=== PATIENT | male | born 1980 | race Caucasian/White ===

== ENCOUNTER 2025-03-11 16:45 | Inpatient (IN) | payer OTHER, SELFPAY ==
[2025-03-11 17:01] VITALS: BP 142/89; PULSE 108; RESP 18; TEMP 36.7; O2SAT 100; BMI 23.5
[2025-03-11 17:14] VITALS: RESP 16
[2025-03-11 17:22] LABS: MANUAL DIFF FLAG NO
[2025-03-11 17:23] LABS: Appearance Urine Clear; Glucose Urine UA >=1000 mg/dL (Negative); Hematocrit 38.4 % (42.0-52.0); Hemoglobin 13.8 g/dl (14.0-18.0); Imm Gran Abs Auto 0.03 X10*3/uL (0.00-0.03); Imm Gran Pct Auto 0.3 % (0.0-0.4); Lymphocytes Absolute Auto 2.6 X10*3/uL (1.2-4.9); Mean Corpuscular HGB Conc 35.9 g/dl (31.0-36.0); Mean Corpuscular Hemoglobin 28.9 pg (27.0-33.0); Mean Corpuscular Volume 80.3 fL (80.0-98.0); NRBC Abs Auto 0.000 X10*3/uL (0.0-0.012); NRBC Pct Auto 0.0 /100WBC (0.0-0.2); PH 5.5 (5.0-9.0); Platelet Count 380 X10*3/uL (160-400); Red Blood Count 4.78 X10*6/uL (4.60-5.80); Specific Gravity - Urine >= 1.030 (1.005-1.025); UMIC TRIGGER UACC YES; White Blood Count 10.1 X10*3/uL (4.8-10.8)
--- NOTE | 2025-03-11 17:29 | PC.NURSE ---
RE: med rec This RN completed pts medications reconciliation by looking at patient's [facility] on phone with listed medications. Pt verbally verified all medications as well
[2025-03-11 17:34] LABS: Cannabinoid Screen Urine Not Detected (Not Detect)
[2025-03-11 17:41] LABS: Alanine Aminotransferase 36 U/L (0-40); Albumin Level 4.7 g/dL (3.5-5.0); Alkaline Phosphatase 58 U/L (39-117); Anion Gap 17 (12-20); Aspartate Amino Transferase 25 U/L (5-37); Blood Urea Nitrogen 15 mg/dL (9-16); Calcium 9.2 mg/dL (8.4-10.2); Carbon Dioxide 22 mmol/L (22-29); Chloride 101 mmol/L (96-108); Creatinine Clr Calc Pharmacy 84.7; Estimated Glomerular Filt Rate > 60; Potassium 4.0 mmol/L (3.3-5.1); Sodium 136 mmol/L (135-145); Total Protein 6.9 g/dL (6.5-8.0)
--- NOTE | 2025-03-11 18:00 | ED.PSYCH ---
HPI - Psych General Chief Complaint: Psychiatric Symptoms Stated Complaint: Depression/SI Time Seen by Provider: 03/11/25 17:58 Source: patient and RN notes reviewed Mode of arrival: ambulatory Limitations: no limitations History of Present Illness ED Provider: Dianne Johnson PA-C HPI Narrative: 44-year-old male with history of depression, presents to the ED today due to increased feelings of depression and suicidal ideation. Patient states he had a job lined up in [place] and was fired on February 28. Since he has been fired from his job he has felt increased life stressors, increased depression and hopelessness. Patient states he feels like he would be better off not here anymore and has suicidal ideation with plan of overdosing on his insulin. Patient states he does not want to do this and these feelings prompted him to seek care in the ED today. Patient states he does have a mild frontal headache and is requesting Tylenol. Patient denies chest pain, shortness of breath, nausea, vomiting, dizziness, lightheadedness, visual changes, visual hallucinations, auditory hallucinations, HI. MD complaint: suicidal ideation Related Data Home Medications ?Medication ?Instructions ?Recorded ?Confirmed albuterol sulfate 90 mcg/actuation 1 puff inhalation Q6H PRN 03/11/25 03/11/25 aerosol inhaler (Ventolin HFA) Shortness Of Breath amlodipine 5 mg tablet 5 mg PO DAILY 03/11/25 03/11/25 atorvastatin 80 mg tablet 80 mg PO DAILY 03/11/25 03/11/25 insulin NPH-regular 70-30 U-100 See Protocol subcut BIDWM 03/11/25 03/11/25 insulin 100 unit/mL subcutaneous pen (Novolin 70-30 FlexPen U-100 Insulin) losartan 100 mg tablet 100 mg PO DAILY 03/11/25 03/11/25 metformin 1,000 mg tablet 1,000 mg PO BIDWMEAL 03/11/25 03/11/25 potassium citrate 10 mEq (1,080 10 meq PO BIDWM 03/11/25 03/11/25 mg) tablet,extended release venlafaxine 75 mg capsule,extended 225 mg PO DAILY 03/11/25 03/11/25 release 24 hr (Effexor XR) Allergies Allergy/AdvReac Type Severity Reaction Status Date / Time Penicillins Allergy Severe Anaphylaxis Verified 03/11/25 17:03 Review of Systems Review of Systems: CONST: Negative for fever, body aches and chills. HENT: Negative for neck pain/stiffness, headache, congestion, sore throat, swelling. POS frontal headache EYES: Negative for discharge/pain or vision changes. RESP: Negative for cough/hemoptysis and shortness of breath. CV: Negative chest pain, difficulty breathing, palpitations. ABD: Negative pain, nausea, vomiting. : Negative increase frequency, dysuria, blood in urine or stool. MUSC: Negative for muscle aches, edema. SKIN: Negative rash, lesions/sores. NEURO: Negative headache, dizziness, weakness. PSYCH: POS increased depression, hopelessness, SI with plan to OD on insulin Yes all other systems are reviewed and are negative PMFSH Past Medical History Attestation statement: The following information was validated with the patient. Source: unable to obtain (Patient from [place] does not have any medical records in [place]) Social History Social History Smoked in Last 30 Days: No Use of substances other than those prescribed or required for medical reasons: No Advance Directives: No Advance Directives Information Provided: Yes Physical Exam Vital Signs: Vital Signs: Last Vital Signs Temp 97.9 F 03/13/25 08:05 Pulse 96 03/13/25 08:05 Resp 17 03/13/25 06:35 BP 146/91 H 03/13/25 09:41 Pulse Ox 99 03/13/25 08:05 O2 Del Method Room Air 03/13/25 08:05 BMI result Body Mass Index 23.5 GENERAL APPEARANCE: ?AxOx3, no acute distress. HEENT: ?NC, AT. MMM. EOMI, clear conjunctiva, oropharynx clear. NECK: No stiffness or restricted ROM. HEART: Normal perfusion distally LUNGS:?No increased respiratory effort NEUROLOGICAL: ?Grossly nonfocal. Alert and oriented, moving all 4 extremities. Observed to ambulate with normal gait. SKIN: ?Warm and dry without any rash. PSYCH: Mood is depressed, affect flat, and minimally reactive. Thought process is linear, no hallucinations or delusions noted. Positive suicidal ideation with plan to overdose on insulin. Course Reevaluation(s) Reevaluation #1: Time: 03:11 Date: 03/12/25 Provider: Elizabeth Dean PA-C Patient in physician observation for psychiatric evaluation.? No acute events reported overnight. No current complaints. VS stable.? Patient is in bed search status/pending CARE team evaluation. Will continue to monitor. Time: 03:10 Reevaluation #2: Time: 11:10 Date: 03/13/25 Provider: Briana Rivas DO Patient in physician observation for psychiatric evaluation.? No acute events reported overnight. No current complaints. VS stable.? Patient is in bed search status. Will continue to monitor. Reevaluation #3: Time: 14:30 Date: 03/13/25 Provider: Briana Rivas DO Physician observation ended at 230pm. Patient to be admitted as inpatient to psychiatry. Medications Administered Generic Name Dose Route Start Last Admin Trade Name Freq PRN Reason Stop Dose Admin Amlodipine Besylate 5 mg 03/12/25 09:00 03/13/25 09:41 Amlodipine Besylate 5 Mg Tablet PO 5 mg DAILY MELISSA Administration Protocol Atorvastatin Calcium 80 mg 03/12/25 09:00 03/13/25 09:42 Atorvastatin Calcium 80 Mg Tablet PO 80 mg DAILY MELISSA Administration Insulin Human Lispro 0 unit 03/11/25 21:00 03/13/25 13:33 Insulin Lispro 100 Unit/Ml 3 Ml Vial SUBCUT 6 unit QIDACHS MELISSA Administration Protocol Losartan Potassium 100 mg 03/12/25 09:00 03/13/25 09:41 Losartan Potassium 50 Mg Tablet PO 100 mg DAILY MELISSA Administration Protocol Metformin HCl 1,000 mg 03/11/25 19:45 03/13/25 09:42 Metformin Hcl 1,000 Mg Tablet PO 1,000 mg BIDWM MELISSA Administration Venlafaxine HCl 225 mg 03/12/25 09:00 03/13/25 09:41 Venlafaxine Hcl Er 75 Mg Cap.Er.24h PO 225 mg DAILY MELISSA Administration Discontinued Medications Generic Name Dose Route Start Last Admin Trade Name Freq PRN Reason Stop Dose Admin Acetaminophen 975 mg 03/11/25 19:50 03/11/25 20:19 Acetaminophen 325 Mg Tablet PO 03/11/25 19:51 975 mg ONCE ONE Administration Medical Decision Making Medical Decision Making MDM Narrative: 44-year-old male with history of depression, presents to the ED today due to increased feelings of depression and suicidal ideation. Patient states he had a job lined up in [place] and was fired on February 28. Since he has been fired from his job he has felt increased life stressors, increased depression and hopelessness. Patient states he feels like he would be better off not here anymore and has suicidal ideation with plan of overdosing on his insulin. Patient states he does not want to do this and these feelings prompted him to seek care in the ED today. Patient states he does have a mild frontal headache and is requesting Tylenol. VSS, patient in mild distress due to increased depression, nontoxic appearing. Labs reveal elevated glucose at 3:28 a.m., patient states he did take his insulin this morning. UA without evidence of infection, does show >1000 glucose. Urine tox negative for all substances. We will continue his home meds so he will get insulin while in department. Patient does not have any physical complaints except for mild frontal headache, physical exam benign. Patient is resting quietly, is under physician observation, awaiting bed search for inpatient care for increased depression and SI with plan. Patients headache improved after Tylenol. Differential Diagnosis Differential Diagnoses: The differential diagnosis associated with the presentation includes Depression Anxiety SI with plan Admission/Observation Consideration of admission/observation: Escalation of care including admission/observation considered Consult Healthcare Provider Management of the patient was discussed with: Road Inspector (CARE team consult) Lab Data MDM Lab Attestation statement: I reviewed the patient's lab results. 03/11/25 17:17 03/11/25 17:17 Labs: Lab Results 03/11/25 03/11/25 03/12/25 Range/Units 17:17 20:08 07:14 WBC 10.1 (4.8-10.8) X10*3/uL RBC 4.78 (4.60-5.80) X10*6/uL Hgb 13.8 L (14.0-18.0) g/dl Hct 38.4 L (42.0-52.0) % MCV 80.3 (80.0-98.0) fL MCH 28.9 (27.0-33.0) pg MCHC 35.9 (31.0-36.0) g/dl RDW 12.7 (11.0-16.0) % Plt Count 380 (160-400) X10*3/uL MPV 8.9 L (9.4-12.4) fL Immature Gran % (Auto) 0.3 (0.0-0.4) % Neut % (Auto) 66.8 (45-73) % Lymph % (Auto) 26.1 (20-40) % [place] % (Auto) 4.7 (2-11) % Eos % (Auto) 1.8 (0-4) % Baso % (Auto) 0.3 (0-2) % Lymph # (Auto) 2.6 (1.2-4.9) X10*3/uL [place] # (Auto) 0.5 (0.1-1.2) X10*3/uL Eos # (Auto) 0.2 (0.0-0.4) X10*3/uL Baso # (Auto) 0.0 (0.0-0.2) X10*3/uL Abs Immat Gran (auto) 0.03 (0.00-0.03) X10*3/uL Absolute Neuts (auto) 6.7 (2.0-8.3) x10*3/uL Absolute Nucleated RBC 0.000 (0.0-0.012) X10*3/uL Nucleated RBC % (auto) 0.0 (0.0-0.2) /100WBC Sodium 136 (135-145) mmol/L Potassium 4.0 (3.3-5.1) mmol/L Chloride 101 (96-108) mmol/L Carbon Dioxide 22 (22-29) mmol/L Anion Gap 17 (12-20) BUN 15 (9-16) mg/dL Creatinine 1.04 (0.5-1.4) mg/dL Estim Creat Clear Calc 84.7 Estimated GFR > 60 POC Glucose 328 H 256 H (60-115) mg/dL Random Glucose 268 H (60-115) mg/dL Calcium 9.2 (8.4-10.2) mg/dL Total Bilirubin 1.0 (0.0-1.0) mg/dL AST 25 (5-37) U/L ALT 36 (0-40) U/L Alkaline Phosphatase 58 (39-117) U/L Total Protein 6.9 (6.5-8.0) g/dL Albumin 4.7 (3.5-5.0) g/dL Urine Color Yellow Urine Appearance Clear Urine pH 5.5 (5.0-9.0) Ur Specific [place] >= 1.030 H (1.005-1.025) Urine Protein Trace (Neg-Trace) mg/dL Urine Glucose (UA) >=1000 H (Negative) mg/dL Urine Ketones Trace (Negative) mg/dL Urine Blood Negative (Negative) Urine Nitrite Negative (Negative) Ur Leukocyte Esterase Negative (Negative) Urine RBC 0-2 (0-2) /HPF Urine WBC 0-5 (0-5) /HPF Ur Squamous Epith Cells 0-2 (0-2) /HPF Urine Bacteria None Seen (None Seen) Hyaline Casts 0-2 (0-2) /LPF Urine Opiates Screen Not Detected (Not Detect) Ur Buprenorphine Scrn Not Detected (Not Detect) ng/mL Ur Oxycodone Screen Not Detected (Not Detect) ng/mL Urine Methadone Screen Not Detected (Not Detect) ng/mL Urine Fentanyl Screen Not Detected (Not Detect) Ur Barbiturates Screen Not Detected (Not Detect) Ur Phencyclidine Scrn Not Detected (Not Detect) Ur Amphetamines Screen Not Detected (Not Detect) U Benzodiazepines Scrn Not Detected (Not Detect) Urine Cocaine Screen Not Detected (Not Detect) U Marijuana (THC) Screen Not Detected (Not Detect) Ethyl Alcohol < 10 mg/dL 03/12/25 03/12/25 03/12/25 Range/Units 12:45 18:01 21:03 WBC (4.8-10.8) X10*3/uL RBC (4.60-5.80) X10*6/uL Hgb (14.0-18.0) g/dl Hct (42.0-52.0) % MCV (80.0-98.0) fL MCH (27.0-33.0) pg MCHC (31.0-36.0) g/dl RDW (11.0-16.0) % Plt Count (160-400) X10*3/uL MPV (9.4-12.4) fL Immature Gran % (Auto) (0.0-0.4) % Neut % (Auto) (45-73) % Lymph % (Auto) (20-40) % [place] % (Auto) (2-11) % Eos % (Auto) (0-4) % Baso % (Auto) (0-2) % Lymph # (Auto) (1.2-4.9) X10*3/uL [place] # (Auto) (0.1-1.2) X10*3/uL Eos # (Auto) (0.0-0.4) X10*3/uL Baso # (Auto) (0.0-0.2) X10*3/uL Abs Immat Gran (auto) (0.00-0.03) X10*3/uL Absolute Neuts (auto) (2.0-8.3) x10*3/uL Absolute Nucleated RBC (0.0-0.012) X10*3/uL Nucleated RBC % (auto) (0.0-0.2) /100WBC Sodium (135-145) mmol/L Potassium (3.3-5.1) mmol/L Chloride (96-108) mmol/L Carbon Dioxide (22-29) mmol/L Anion Gap (12-20) BUN (9-16) mg/dL Creatinine (0.5-1.4) mg/dL Estim Creat Clear Calc Estimated GFR POC Glucose 264 H 300 H 287 H (60-115) mg/dL Random Glucose (60-115) mg/dL Calcium (8.4-10.2) mg/dL Total Bilirubin (0.0-1.0) mg/dL AST (5-37) U/L ALT (0-40) U/L Alkaline Phosphatase (39-117) U/L Total Protein (6.5-8.0) g/dL Albumin (3.5-5.0) g/dL Urine Color Urine Appearance Urine pH (5.0-9.0) Ur Specific [place] (1.005-1.025) Urine Protein (Neg-Trace) mg/dL Urine Glucose (UA) (Negative) mg/dL Urine Ketones (Negative) mg/dL Urine Blood (Negative) Urine Nitrite (Negative) Ur Leukocyte Esterase (Negative) Urine RBC (0-2) /HPF Urine WBC (0-5) /HPF Ur Squamous Epith Cells (0-2) /HPF Urine Bacteria (None Seen) Hyaline Casts (0-2) /LPF Urine Opiates Screen (Not Detect) Ur Buprenorphine Scrn (Not Detect) ng/mL Ur Oxycodone Screen (Not Detect) ng/mL Urine Methadone Screen (Not Detect) ng/mL Urine Fentanyl Screen (Not Detect) Ur Barbiturates Screen (Not Detect) Ur Phencyclidine Scrn (Not Detect) Ur Amphetamines Screen (Not Detect) U Benzodiazepines Scrn (Not Detect) Urine Cocaine Screen (Not Detect) U Marijuana (THC) Screen (Not Detect) Ethyl Alcohol mg/dL 03/13/25 03/13/25 Range/Units 07:01 12:58 WBC (4.8-10.8) X10*3/uL RBC (4.60-5.80) X10*6/uL Hgb (14.0-18.0) g/dl Hct (42.0-52.0) % MCV (80.0-98.0) fL MCH (27.0-33.0) pg MCHC (31.0-36.0) g/dl RDW (11.0-16.0) % Plt Count (160-400) X10*3/uL MPV (9.4-12.4) fL Immature Gran % (Auto) (0.0-0.4) % Neut % (Auto) (45-73) % Lymph % (Auto) (20-40) % [place] % (Auto) (2-11) % Eos % (Auto) (0-4) % Baso % (Auto) (0-2) % Lymph # (Auto) (1.2-4.9) X10*3/uL [place] # (Auto) (0.1-1.2) X10*3/uL Eos # (Auto) (0.0-0.4) X10*3/uL Baso # (Auto) (0.0-0.2) X10*3/uL Abs Immat Gran (auto) (0.00-0.03) X10*3/uL Absolute Neuts (auto) (2.0-8.3) x10*3/uL Absolute Nucleated RBC (0.0-0.012) X10*3/uL Nucleated RBC % (auto) (0.0-0.2) /100WBC Sodium (135-145) mmol/L Potassium (3.3-5.1) mmol/L Chloride (96-108) mmol/L Carbon Dioxide (22-29) mmol/L Anion Gap (12-20) BUN (9-16) mg/dL Creatinine (0.5-1.4) mg/dL Estim Creat Clear Calc Estimated GFR POC Glucose 244 H 284 H (60-115) mg/dL Random Glucose (60-115) mg/dL Calcium (8.4-10.2) mg/dL Total Bilirubin (0.0-1.0) mg/dL AST (5-37) U/L ALT (0-40) U/L Alkaline Phosphatase (39-117) U/L Total Protein (6.5-8.0) g/dL Albumin (3.5-5.0) g/dL Urine Color Urine Appearance Urine pH (5.0-9.0) Ur Specific [place] (1.005-1.025) Urine Protein (Neg-Trace) mg/dL Urine Glucose (UA) (Negative) mg/dL Urine Ketones (Negative) mg/dL Urine Blood (Negative) Urine Nitrite (Negative) Ur Leukocyte Esterase (Negative) Urine RBC (0-2) /HPF Urine WBC (0-5) /HPF Ur Squamous Epith Cells (0-2) /HPF Urine Bacteria (None Seen) Hyaline Casts (0-2) /LPF Urine Opiates Screen (Not Detect) Ur Buprenorphine Scrn (Not Detect) ng/mL Ur Oxycodone Screen (Not Detect) ng/mL Urine Methadone Screen (Not Detect) ng/mL Urine Fentanyl Screen (Not Detect) Ur Barbiturates Screen (Not Detect) Ur Phencyclidine Scrn (Not Detect) Ur Amphetamines Screen (Not Detect) U Benzodiazepines Scrn (Not Detect) Urine Cocaine Screen (Not Detect) U Marijuana (THC) Screen (Not Detect) Ethyl Alcohol mg/dL Chronic Conditions Patient?s care impacted by: Diabetes and Other (Depression) Discharge Plan Discharge Clinical Impression: Depression Patient Disposition: Admitted As Inpatient Interventions: [place]-Suicide Risk Severity Scale Last Done: 03/12/25 20:24 Print Language: Uzbek
[2025-03-11 20:15] LABS: Glucose, Whole Blood 328 mg/dL (60-115)
[2025-03-12 06:53] VITALS: BP 127/76; PULSE 98; RESP 17; TEMP 36.7; O2SAT 99
--- NOTE | 2025-03-12 07:08 | PC.NURSE ---
Assumed care of patient at 0645, patient appears to be sleeping at this time, respirations even and unlabored, no apparent distress is noted. Continue plan of care for IPLOC
[2025-03-12 07:17] LABS: Glucose, Whole Blood 256 mg/dL (60-115)
[2025-03-12] MEDS: Venlafaxine HCl ER 75 MG CAP.ER.24H 225 MG PO (07:20)
[2025-03-12 07:21] VITALS: BP 127/76
[2025-03-12 12:49] LABS: Glucose, Whole Blood 264 mg/dL (60-115)
[2025-03-12 18:06] LABS: Glucose, Whole Blood 300 mg/dL (60-115)
[2025-03-12 20:43] VITALS: BP 130/86; PULSE 102; RESP 18; TEMP 36.6; O2SAT 98
--- NOTE | 2025-03-12 21:02 | PC.NURSE ---
late entry patient appears relaxing in rear common ar4ea, smiling pleasant no behavioral problems appears in no distress
[2025-03-12 21:07] LABS: Glucose, Whole Blood 287 mg/dL (60-115)
--- NOTE | 2025-03-13 | ECG_ITS ---
Test Reason : CHECK PROLONGED QT Blood Pressure : */* mmHG Vent. Rate : 125 BPM Atrial Rate : 125 BPM P-R Int : 144 ms QRS Dur : 66 ms QT Int : 306 ms P-R-T Axes : 39 -45 48 degrees QTcB Int : 441 ms Sinus tachycardia Left axis deviation Inferior infarct , age undetermined cannot exclude anterior infarct Abnormal ECG No previous ECGs available Referred By: Bernadette Mejia Electronically Signed By: MAHESH CORADO
[2025-03-13 06:35] VITALS: BP 128/77; PULSE 84; RESP 17; TEMP 36.4; O2SAT 99
[2025-03-13 07:04] LABS: Glucose, Whole Blood 244 mg/dL (60-115)
[2025-03-13 08:05] VITALS: BP 146/91; PULSE 96; TEMP 36.6; O2SAT 99
[2025-03-13 09:41] VITALS: BP 146/91
[2025-03-13] MEDS: Venlafaxine HCl ER 75 MG CAP.ER.24H 225 MG PO (09:41)
[2025-03-13 13:01] LABS: Glucose, Whole Blood 284 mg/dL (60-115)
[2025-03-13 14:49] VITALS: BP 130/77; PULSE 124; RESP 14; TEMP 36.8; O2SAT 98
[2025-03-13 16:04] VITALS: BP 132/78; PULSE 114; RESP 16; TEMP 36.3; O2SAT 99; BMI 25.8
[2025-03-13 17:10] LABS: Glucose, Whole Blood 322 mg/dL (60-115)
--- NOTE | 2025-03-13 18:05 | PC.ADMIT ---
Kenan is a 44yr old male with h/o Depression, Insulin Dependent Diabetes, Asthma & HTN. He?s admitted to [facility] today, on a CV, after self-presenting to the ED with increased feelings of depression & suicidal ideation. Kenan is A&Ox4, calm, appropriate & engaged with good eye contact. He does not have a therapist or psychiatrist. His PCP has been managing his antidepressant (Effexor). Kenan is currently between homes. 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 Kenan was then terminated from his job at the camp, so technically he?s homeless at this time. He endorses trauma from childhood (but didn?t elaborate) as well as a traumatic divorce from his first marriage. He has had one suicide attempt in 2016, by putting a plastic bag over his head. Kenan endorses SI but is able to contract for safety while here. He denies HI/AVH. Skin check is unremarkable with the exception of a few bug bites on his lower legs. Kenan was oriented to the unit & placed on 15min safety checks.
[2025-03-13 19:39] VITALS: BP 113/68; PULSE 105; RESP 17; TEMP 36.6; O2SAT 98
[2025-03-13 21:10] LABS: Glucose, Whole Blood 220 mg/dL (60-115)
[2025-03-14 08:00] VITALS: BP 136/76; PULSE 81; RESP 16; TEMP 36.6; O2SAT 97
[2025-03-14 08:02] LABS: Glucose, Whole Blood 285 mg/dL (60-115)
[2025-03-14 08:11] LABS: Hemoglobin A1C 386.4456 umol/L; Total Hemoglobin (HGBA1C) 3549.0838 umol/L
[2025-03-14 08:17] LABS: Anion Gap 14 (12-20); Blood Urea Nitrogen 22 mg/dL (9-16); Calcium 9.0 mg/dL (8.4-10.2); Carbon Dioxide 25 mmol/L (22-29); Chloride 104 mmol/L (96-108); Cholesterol 143 mg/dL (<200); Creatinine Clr Calc Pharmacy 93.7; Estimated Glomerular Filt Rate > 60; HDL Cholesterol 32 mg/dL (>40); Magnesium 1.8 mg/dL (1.6-2.6); Potassium 4.1 mmol/L (3.3-5.1); Sodium 139 mmol/L (135-145); Triglycerides 458 mg/dL (<150)
[2025-03-14] MEDS: Venlafaxine HCl ER 75 MG CAP.ER.24H 225 MG PO (08:18)
[2025-03-14 08:19] VITALS: BP 136/76
[2025-03-14 08:32] LABS: Free T4 (Free Thyroxine) 0.87 ng/dL (0.71-1.85); Thyroid Stimulating Hormone 1.48 uIU/mL (0.32-4.0)
[2025-03-14 08:48] LABS: Vitamin B12 634 pg/mL (200-900)
[2025-03-14 08:53] LABS: Folate 10.9 ng/mL (> or = 4.0)
--- NOTE | 2025-03-14 09:39 | P.HPPS_ITS ---
HPI Date of Service: 03/14/25 Chief Complaint: Depression Sources of Information: patient interviewed, chart reviewed and crisis/core team assessment reviewed HPI Subjective Notes: Ruffin Warning, Conditional Voluntary and 3 Day Narrative: Pt seen on 03/14/25 at 11:00am 44 yo male with hx of depression, severe social anxiety, PTSD ADHD, asthma, diabetes, HLD, who presents for worsening depression following being fired from job. Pt reports long hx of depressive episode, mostly triggered by anxiety provoking experience, followed by negative self talk. Pt was recently fired, unexpectedly from job after 1 week, no explanation leaving him homeless, which triggered spiraling emotions, feelings of being worthless and then that he'd be better off ; pt driving around [place], avoiding talking about his family, eventually called crisis. -no drug/alcohol abuse; no hx of manic episodes; no AVH Past Psychiatric History: one psych admission 2015 one time SA in 2016 therapy over time which has helped Effexor increased a few months ago Medication trials: Effexor XL 150mg for several years Wellbutrin helpful but maybe ceased being so; took 15 years ago Zoloft in HS Medical Evaluation Reviewed: Yes [facility] Medical History (Updated 03/15/25 @ 14:13 by Genet Engel DNP) PTSD (post-traumatic stress disorder) Social anxiety disorder MDD (major depressive disorder), recurrent severe, without psychosis Family History: mom has depression Social History: ; one son (step son?) works as center director lead teacher in private schools; numerous jobs since anxiety overwhelms him and he loses job after about a year and son in another state, waiting for pt Substance History: none Trauma History: childhood trauma; did not discuss Diagnostics Vital Signs (24Hr): Vital Signs - 24 hr 03/13/25 09:41 03/13/25 09:41 03/13/25 14:49 Temperature 98.2 F Pulse Rate 124 H Respiratory Rate 14 Blood Pressure 146/91 H 146/91 H 130/77 Pulse Oximetry 98 Oxygen Delivery Method Room Air 03/13/25 16:04 03/13/25 19:39 03/14/25 08:19 Temperature 97.3 F 97.8 F Pulse Rate 114 H 105 H Respiratory Rate 16 17 Blood Pressure 132/78 113/68 136/76 Pulse Oximetry 99 98 Oxygen Delivery Method Room Air Room Air BMI result Body Mass Index 25.8 Labs 03/11/25 17:17 03/18/25 07:51 Labs: Laboratory Results - last 48 hr 03/12/25 03/12/25 03/12/25 12:45 18:01 21:03 Sodium Potassium Chloride Carbon Dioxide Anion Gap BUN Creatinine Estim Creat Clear Calc Estimated GFR POC Glucose 264 H 300 H 287 H Random Glucose Estimat Average Glucose Hemoglobin A1c % Calcium Magnesium Triglycerides Cholesterol LDL Cholesterol, Calc HDL Cholesterol Vitamin B12 Folate TSH Free T4 03/13/25 03/13/25 03/13/25 07:01 12:58 17:06 Sodium Potassium Chloride Carbon Dioxide Anion Gap BUN Creatinine Estim Creat Clear Calc Estimated GFR POC Glucose 244 H 284 H 322 H Random Glucose Estimat Average Glucose Hemoglobin A1c % Calcium Magnesium Triglycerides Cholesterol LDL Cholesterol, Calc HDL Cholesterol Vitamin B12 Folate TSH Free T4 03/13/25 03/14/25 03/14/25 21:00 07:47 07:59 Sodium 139 Potassium 4.1 Chloride 104 Carbon Dioxide 25 Anion Gap 14 BUN 22 H Creatinine 0.94 Estim Creat Clear Calc 93.7 Estimated GFR > 60 POC Glucose 220 H 285 H Random Glucose 271 H Estimat Average Glucose 301 Hemoglobin A1c % 12.1 H Calcium 9.0 Magnesium 1.8 Triglycerides 458 H Cholesterol 143 LDL Cholesterol, Calc TNP HDL Cholesterol 32 L Vitamin B12 634 Folate 10.9 TSH 1.48 Free T4 0.87 Meds/Allergies Meds Home Medications ?Medication ?Instructions ?Recorded ?Confirmed ?Type albuterol sulfate 90 mcg/actuation 1 puff inhalation Q 6H PRN 03/11/25 03/11/25 History aerosol inhaler (Ventolin HFA) Shortness Of Breath amlodipine 5 mg tablet 5 mg PO DAILY 03/11/2503/11 History atorvastatin 80 mg tablet 80 mg PO DAILY 03/11/2502/28 History insulin NPH-regular 70-30 U-100 See Protocol subcut BI DWM 03/11/25 03/11/25 History insulin 100 unit/mL subcutaneous pen (Novolin 70-30 FlexPen U-100 Insulin) losartan 100 mg tablet 100 mg PO DAILY 03/11/2508/24 History metformin 1,000 mg tablet 1,000 mg PO BIDWMEAL 5 03/11/25 History potassium citrate 10 mEq (1,080 10 meq PO BIDWM 03/11/25 History mg) tablet,extended release venlafaxine 75 mg capsule,extended 225 mg PO DAILY 08/2403/11/25 History release 24 hr (Effexor XR) Allergies Allergies Allergy/AdvReac Type Severity Reaction Status Date / Time Penicillins Allergy Severe Anaphylaxis Verified 03/11/25 17:03 Mental Status Exam Mental Status Exam Narrative: Pt is alert and oriented; behavior is cooperative, calm; patient is not in distress; dressed in hospital attire, bearded, glasses, unkempt; mood is described as anxious, depressed and affect congruent; eye contact appropriate; Speech is normal rate, volume and prosody and not pressured; psychomotor retardation present; thought process is organized and goal directed; Thought content is on tx; otherwise pertinent to relevant topics and without any delusional content, paranoid ideations or grandiosity; passive SI; no HI. Denies AVH and there is no evidence of perceptual disturbance. Patients insight and judgment impaired. Assessment & Plan Assessment & Plan (1) MDD (major depressive disorder), recurrent severe, without psychosis: Status: Acute Code(s): F33.2 - Major depressive disorder, recurrent severe without psychotic features (2) Social anxiety disorder: Status: Acute Code(s): F40.10 - Social phobia, unspecified (3) PTSD (post-traumatic stress disorder): Status: Acute Code(s): F43.10 - Post-traumatic stress disorder, unspecified Plan HPI: 44 yo male with hx of depression, severe social anxiety, PTSD ADHD, asthma, diabetes, HLD, who presents for worsening depression following being fired from job. Pt reports long hx of depressive episode, mostly triggered by anxiety provoking experience, followed by negative self talk. Pt was recently fired, unexpectedly from job after 1 week, no explanation leaving him homeless, which triggered spiraling emotions, feelings of being worthless and then that he'd be better off ; pt driving around [place], avoiding talking about his family, eventually called crisis. -no drug/alcohol abuse; no hx of manic episodes; no AVH discussed significant social anxiety: walk into situations already thinking people don't like me...anxious around people of authority; worried about getting in trouble Formulation/clinical reasoning: Depression mostly treated with Venlafaxine (recently increased). However, much of depressive episode triggered by some anxiety provoking event that releases flood of negative self-talk resulting in depressive episode. It seems that this anxiety remains poorly treated by Venlafaxine. -Discussed med options and reviewed risks/side-effects of both Buspar and Trileptal and pt open to both. 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 -Other options include: mirtazapine, low dose anti-psychotic, intuniv..and TMS. Will also try prn Clonidine. -Pt has unaddressed trauma and Ultimately, therapy required for most chance at reducing symptoms PLAN' CV q15 START Trileptal 150mg bid; likely titrate to 300mg TID Continue Venlafaxine xl 225mg STart Clonidine PRN TMS consult placed discussed HbA1C and pt aware Discussed HLD/TAG and pt aware Patient educated on: diagnosis, medication risk/benefits, TMS, therapeutic strategies and medical condition Informed Consent: understands Reason for continued inpatient stay Substantial Risk for: rapid decompensation Statement Statement: I have reviewed the history and physical and performed a pertinent examination on my patient. No changes have occurred unless specified. If the History and Physical was not performed prior to admission, the Hospitalist's service will be consulted for completing the admission physical. Time Spent With Patient Time: Total time managing care of this patient today ____ minutes.
[2025-03-14 12:35] LABS: Glucose, Whole Blood 327 mg/dL (60-115)
[2025-03-14 17:13] LABS: Glucose, Whole Blood 239 mg/dL (60-115)
[2025-03-14 20:00] VITALS: BP 116/55; PULSE 85; RESP 16; O2SAT 95
[2025-03-14 21:48] LABS: Glucose, Whole Blood 333 mg/dL (60-115)
[2025-03-14] MEDS: traZODone HCL 25 MG HALFTAB PO (22:29)
[2025-03-15 07:53] LABS: Glucose, Whole Blood 206 mg/dL (60-115)
[2025-03-15 08:00] VITALS: BP 123/64; PULSE 88; TEMP 36.7; O2SAT 99
[2025-03-15 09:26] VITALS: BP 123/64
[2025-03-15] MEDS: Venlafaxine HCl ER 75 MG CAP.ER.24H 225 MG PO (09:27)
--- NOTE | 2025-03-15 10:43 | HO.PM.IMCN ---
History of Present Illness Data of Consult Service Date: 03/15/25 Primary Care Provider: None Physician HPI Reason for consult: Hyperglycemia 44-year-old male with a history of PTSD, social anxiety, major depressive disorder, depression, hypertension, hyperlipidemia, and insulin-dependent diabetes. Patient is seen for elevated A1c. His A1c was noted to be 12.1. Patient reports that he was previously taking insulin 70/30 twice daily, he was off of his insulin for a period of about 6 months due to not having any insurance. He has been getting insulin sliding scale here, his point of care glucose has been ranging 239-414. He is swinging lispro sliding scale, patient is also taking metformin twice daily. Patient reports that he previously took Ozempic as well in his A1c was in the 8 but he has been off his medications for some time. He denies any shortness with his breath, dizziness, lightheadedness or any other concerning symptoms. Reports that he feels a little tired, he did receive medication this morning to help with his anxiety and he feels like this is attributing to him feeling tired. Review of Systems Review of Systems: Denies any shortness of breath, chest pain, dizziness, lightheadedness, abdominal pain or discomfort, nausea vomiting or diarrhea [facility] Medical History (Updated 03/15/25 @ 14:13 by Genet Engel DNP) PTSD (post-traumatic stress disorder) Social anxiety disorder MDD (major depressive disorder), recurrent severe, without psychosis Social History Household Members: None Household Members Other:: in [facility] between homes & jobs Housing: Homeless Do you presently have visiting nurse or other home services: No Patient Tobacco Use Status: Never used Tobacco Smoked in Last 30 Days: No e-Cigarette/Vaping Use: Never Used Second Hand Smoke Exposure: No Use of substances other than those prescribed or required for medical reasons: No Currently Displaying Signs/Symptoms of Drug Intoxication Withdrawal: No Have you been hit, kicked, punched, or otherwise hurt by someone within the past year? If so, by whom?: No Do you feel safe in your current relationship?: Yes Is there a partner from a previous relationship who is making you feel unsafe now?: No Are you made to feel afraid or neglected: No Spiritual Healthcare Practices: N/A Advance Directives: No Advance Directives Information Provided: Yes Do you have thoughts of harming others: None Do you have a plan to hurt others: No Plan Recently lost weight without trying: No How much weight loss: Not applicable Nutrition Risks: No Nutritional Risk Poor oral hygiene: No service: No Sexual orientation: Straight/Heterosexual Meds Allergies Allergy/AdvReac Type Severity Reaction Status Date / Time Penicillins Allergy Severe Anaphylaxis Verified 03/11/25 17:03 Active Medications: Current Medications Acetaminophen (Acetaminophen 325 Mg Tablet) 650 mg PO Q6H PRN PRN Reason: Headache/Pain, Scale 1-10 Al Hydroxide/Mg Hydroxide (Magnesium Hydrox/Alum Hydrox 30 Ml Oral.Susp) 30 ml PO Q6H PRN PRN Reason: Heartburn/Nausea Albuterol Sulfate (Albuterol Sulfate 90 Mcg 8 Gm Inhaler) 1 puff INHALE Q6H PRN PRN Reason: Shortness of Breath Amlodipine Besylate (Amlodipine Besylate 5 Mg Tablet) 5 mg PO DAILY [facility]; Protocol Last Admin: 03/15/25 09:29 Dose: 5 mg Atorvastatin Calcium (Atorvastatin Calcium 80 Mg Tablet) 80 mg PO DAILY [facility] Last Admin: 03/15/25 09:28 Dose: 80 mg Clonidine HCl (Clonidine Hcl 0.1 Mg Tablet) 0.1 mg PO Q4H PRN; Protocol PRN Reason: moderate anxiety Hydroxyzine HCl (Hydroxyzine Hcl 25 Mg Tablet) 25 mg PO Q6H PRN PRN Reason: mild anxiety Last Admin: 03/13/25 22:27 Dose: 25 mg Insulin Human Lispro (Insulin Lispro 100 Unit/Ml 3 Ml Vial) 0 unit SUBCUT QIDACHS [facility]; Protocol Last Admin: 03/15/25 09:42 Dose: Not Given Losartan Potassium (Losartan Potassium 50 Mg Tablet) 100 mg PO DAILY [facility]; Protocol Last Admin: 03/15/25 09:26 Dose: 100 mg Magnesium Hydroxide (Milk Of Magnesia 30 Ml Oral.Susp) 30 ml PO DAILY PRN PRN Reason: Constipation Metformin HCl (Metformin Hcl 1,000 Mg Tablet) 1,000 mg PO BIDWM [facility] Last Admin: 03/15/25 09:27 Dose: 1,000 mg Nicotine Polacrilex (Nicotine Polacrilex 2 Mg Gum) 4 mg BUCCAL Q2H PRN PRN Reason: Nicotine Cravings Oxcarbazepine (Oxcarbazepine 150 Mg Tablet) 150 mg PO BID [facility] Last Admin: 03/15/25 09:29 Dose: 150 mg Trazodone HCl (Trazodone Hcl 25 Mg Halftab) 25 mg PO BEDTIME MRX1 PRN PRN Reason: Insomnia Last Admin: 03/14/25 22:29 Dose: 25 mg Venlafaxine HCl (Venlafaxine Hcl Er 75 Mg Cap.Er.24h) 225 mg PO DAILY [facility] Last Admin: 03/15/25 09:27 Dose: 225 mg Home Medications ?Medication ?Instructions ?Recorded ?Confirmed ?Last Taken ?Type albuterol sulfate 90 mcg/actuation 1 puff inhalation Q6H PRN 03/11/25 03/11/25 03/11/25 History aerosol inhaler (Ventolin HFA) Shortness Of Breath amlodipine 5 mg tablet 5 mg PO DAILY 03/11/25 03/11/25 03/11/25 History atorvastatin 80 mg tablet 80 mg PO DAILY 03/11/25 03/11/25 03/11/25 History insulin NPH-regular 70-30 U-100 See Protocol subcut BIDWM 03/11/25 03/11/25 03/11/25 History insulin 100 unit/mL subcutaneous pen (Novolin 70-30 FlexPen U-100 Insulin) losartan 100 mg tablet 100 mg PO DAILY 03/11/25 03/11/25 03/11/25 History metformin 1,000 mg tablet 1,000 mg PO BIDWMEAL 03/11/25 03/11/25 03/11/25 History potassium citrate 10 mEq (1,080 10 meq PO BIDWM 03/11/25 03/11/25 03/11/25 History mg) tablet,extended release venlafaxine 75 mg capsule,extended 225 mg PO DAILY 03/11/25 03/11/25 Unknown History release 24 hr (Effexor XR) Physical Exam Vital Signs and Narrative: Vital Signs: Last Vital Signs Temp 97.8 F 03/14/25 08:00 Pulse 85 03/14/25 20:00 Resp 16 03/14/25 20:00 BP 123/64 03/15/25 09:26 Pulse Ox 95 03/14/25 20:00 O2 Del Method Room Air 03/14/25 20:00 BMI result Body Mass Index 25.8 CONST: Alert and oriented, in NAD. Well nourished HEENT: Normocephalic, atraumatic, MMM RESP: Lungs clear, RRR even and regular HEART:,RRR, S1, S2. No murmur, no edema GI:Abdomen Soft NT, ND. + BS times four :Deferred SKIN: Warm dry and intact, no visible lesions or rashes NEURO:CN II-XII Intact bilaterally, Sensation intact. Speech clear PSYCH: Normal affect Results Labs 03/11/25 17:17 03/14/25 07:47 Labs: Laboratory Results - last 24 hr 03/14/25 03/14/25 03/14/25 12:31 17:09 21:41 POC Glucose 327 H 239 H 333 H 03/15/25 07:44 POC Glucose 206 H Assessment and Plan (1) Uncontrolled type 2 diabetes mellitus with hyperglycemia, with long-term current use of insulin: Status: Acute Plan 44-year-old male with a history of MDD, PTSD, social anxiety disorder, insulin-dependent diabetes, hypertension, asthma, and hyperlipidemia. He presented to the ED with increased depression and suicidal ideation, he is admitted to for further care and treatment. MDD/PTSD/Social Anxiety/SI Treatment per psychiatric team Type 2 insulin-dependent diabetes Patient reports that he has been off of his insulin as well as his Ozempic for several months due to insurance issues Has been getting lispro sliding scale. Blood sugars have been ranging to 206-414 Patient was previously taking 70/ 30 insulin twice daily- not receiving here A1c noted to be 12.1 on 03/14/2025 We will start Lantus 10 units at hs- titrate up based on response Hypertension/hyperlipidemia Continue atorvastatin 80 mg daily Patient has been off of his medications, his triglycerides are elevated. Recommend repeat in 2 weeks and follow up with PCP. Continue amlodipine and losartan. Blood pressure stable Low-fat diet, encourage exercise. LFTs within normal limits Thank you for allowing me to participate in the care of this patient. We will continue to follow as needed. Please reconsult of any acute concerns or issues arise
[2025-03-15 12:17] LABS: Glucose, Whole Blood 414 mg/dL (60-115)
--- NOTE | 2025-03-15 14:43 | P.PNPSI_ITS ---
Subjective Subjective Date of Service: 03/15/25 Reason For Visit: Depression Subjective Notes: Conditional Voluntary Healthcare Proxy: No Guardianship: No Medical Problems Affecting Mental Status: No Interim History: Medical record and nursing notes reviewed; case discussed during rounds with team/nursing staff, and met with patient for supportive therapy/psychoeducation, as well as medication management. Patient slept for 7 hours last, was medication compliant, denies side effects. Reported that after taking the Trileptal he feels his anxiety like distance even though it is still there. Mood is spacey . He reports having trouble falling asleep last night but appetite was good. Anxiety and depression 5/10. Denies voices, paranoid thoughts, and denies other safety concerns. He met with hospitalist today this morning. We will start Glargine 10 units today. Some elevated blood work on lipid and A1c. Point of care is elevated at lunchtime. Given 12 units Lispro with meal. Nursing to retract 1-2 hours after given. Medication Compliance: Yes Side effects from medications: No Attending Groups: Yes Review of Systems Acute medical concerns: No Medical Review of Systems: unchanged Review of Systems Review of Systems Denies any shortness of breath, chest pain, dizziness, lightheadedness, abdominal pain or discomfort, nausea vomiting or diarrhea Yes all other systems are reviewed and are negative Mental Status Exam Mental Status Exam Narrative: Patient is alert and oriented x3; behavior is cooperative, friendly with mild to moderate anxiety and depression; patient is not in distress; dressed in hospital attire with adequate hygiene; mood is described as spacey, depressed and anxiety and affect congruent; eye contact appropriate; Speech is normal rate, volume and prosody and not pressured; no psychomotor agitation/retardation present; thought process is organized and goal directed; Thought content is WNL, pertinent to relevant topics and without any delusional content, paranoid ideation or grandiosity; denies any SI/SIB/HI. Denies AH and there is no evidence of perceptual disturbance. Patient's insight and judgment fair. Diagnostics Vital Signs (24Hr): Vital Signs - 24 hr 03/14/25 20:00 03/15/25 09:26 Pulse Rate 85 Respiratory Rate 16 Blood Pressure 116/55 L 123/64 Pulse Oximetry 95 Oxygen Delivery Method Room Air BMI result Body Mass Index 25.8 Labs 03/11/25 17:17 03/14/25 07:47 Labs: Laboratory Results - last 48 hr 03/13/25 03/13/25 03/14/25 17:06 21:00 07:47 Sodium 139 Potassium 4.1 Chloride 104 Carbon Dioxide 25 Anion Gap 14 BUN 22 H Creatinine 0.94 Estim Creat Clear Calc 93.7 Estimated GFR > 60 POC Glucose 322 H 220 H Random Glucose 271 H Estimat Average Glucose 301 Hemoglobin A1c % 12.1 H Calcium 9.0 Magnesium 1.8 Triglycerides 458 H Cholesterol 143 LDL Cholesterol, Calc TNP HDL Cholesterol 32 L Vitamin B12 634 Folate 10.9 TSH 1.48 Free T4 0.87 03/14/25 03/14/25 03/14/25 07:59 12:31 17:09 Sodium Potassium Chloride Carbon Dioxide Anion Gap BUN Creatinine Estim Creat Clear Calc Estimated GFR POC Glucose 285 H 327 H 239 H Random Glucose Estimat Average Glucose Hemoglobin A1c % Calcium Magnesium Triglycerides Cholesterol LDL Cholesterol, Calc HDL Cholesterol Vitamin B12 Folate TSH Free T4 03/14/25 03/15/25 03/15/25 21:41 07:44 12:13 Sodium Potassium Chloride Carbon Dioxide Anion Gap BUN Creatinine Estim Creat Clear Calc Estimated GFR POC Glucose 333 H 206 H 414 H* Random Glucose Estimat Average Glucose Hemoglobin A1c % Calcium Magnesium Triglycerides Cholesterol LDL Cholesterol, Calc HDL Cholesterol Vitamin B12 Folate TSH Free T4 Medications Medications Current Medications Acetaminophen (Acetaminophen 325 Mg Tablet) 650 mg PO Q6H PRN PRN Reason: Headache/Pain, Scale 1-10 Al Hydroxide/Mg Hydroxide (Magnesium Hydrox/Alum Hydrox 30 Ml Oral.Susp) 30 ml PO Q6H PRN PRN Reason: Heartburn/Nausea Albuterol Sulfate (Albuterol Sulfate 90 Mcg 8 Gm Inhaler) 1 puff INHALE Q6H PRN PRN Reason: Shortness of Breath Amlodipine Besylate (Amlodipine Besylate 5 Mg Tablet) 5 mg PO DAILY [facility]; Protocol Last Admin: 03/15/25 09:29 Dose: 5 mg Atorvastatin Calcium (Atorvastatin Calcium 80 Mg Tablet) 80 mg PO DAILY [facility] Last Admin: 03/15/25 11:01 Dose: 80 mg Clonidine HCl (Clonidine Hcl 0.1 Mg Tablet) 0.1 mg PO Q4H PRN; Protocol PRN Reason: moderate anxiety Hydroxyzine HCl (Hydroxyzine Hcl 25 Mg Tablet) 25 mg PO Q6H PRN PRN Reason: mild anxiety Last Admin: 03/13/25 22:27 Dose: 25 mg Insulin Glargine (Insulin Glargine,Hum.Rec.Anlog 100 Unit/Ml 10 Ml Vial) 10 unit SUBCUT BEDTIME [facility] Insulin Human Lispro (Insulin Lispro 100 Unit/Ml 3 Ml Vial) 0 unit SUBCUT QIDACHS [facility]; Protocol Last Admin: 03/15/25 12:24 Dose: Not Given Losartan Potassium (Losartan Potassium 50 Mg Tablet) 100 mg PO DAILY [facility]; Protocol Last Admin: 03/15/25 09:26 Dose: 100 mg Magnesium Hydroxide (Milk Of Magnesia 30 Ml Oral.Susp) 30 ml PO DAILY PRN PRN Reason: Constipation Metformin HCl (Metformin Hcl 1,000 Mg Tablet) 1,000 mg PO BIDWM [facility] Last Admin: 03/15/25 09:27 Dose: 1,000 mg Nicotine Polacrilex (Nicotine Polacrilex 2 Mg Gum) 4 mg BUCCAL Q2H PRN PRN Reason: Nicotine Cravings Oxcarbazepine (Oxcarbazepine 150 Mg Tablet) 150 mg PO BID [facility] Last Admin: 03/15/25 09:29 Dose: 150 mg Trazodone HCl (Trazodone Hcl 25 Mg Halftab) 25 mg PO BEDTIME MRX1 PRN PRN Reason: Insomnia Last Admin: 03/14/25 22:29 Dose: 25 mg Venlafaxine HCl (Venlafaxine Hcl Er 75 Mg Cap.Er.24h) 225 mg PO DAILY [facility] Last Admin: 03/15/25 09:27 Dose: 225 mg Allergies Allergies Allergy/AdvReac Type Severity Reaction Status Date / Time Penicillins Allergy Severe Anaphylaxis Verified 03/11/25 17:03 Assessment & Plan Assessment & Plan (1) Uncontrolled type 2 diabetes mellitus with hyperglycemia, with long-term current use of insulin: Status: Acute Code(s): E11.65 - Type 2 diabetes mellitus with hyperglycemia; Z79.4 - alf (current) use of insulin (2) MDD (major depressive disorder), recurrent severe, without psychosis: Status: Acute Code(s): F33.2 - Major depressive disorder, recurrent severe without psychotic features (3) Social anxiety disorder: Status: Acute Code(s): F40.10 - Social phobia, unspecified (4) PTSD (post-traumatic stress disorder): Status: Acute Code(s): F43.10 - Post-traumatic stress disorder, unspecified Plan Formulation/clinical reasoning: Depression mostly treated with Venlafaxine (recently increased). However, much of depressive episode triggered by some anxiety provoking event that releases flood of negative self-talk resulting in depressive episode. It seems that this anxiety remains poorly treated by Venlafaxine. -Discussed med options and reviewed risks/side-effects of both Buspar and Trileptal and pt open to both. 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 -Other options include: mirtazapine, low dose anti-psychotic, intuniv..and TMS. Will also try prn Clonidine. -Pt has unaddressed trauma and Ultimately, therapy required for most chance at reducing symptoms : Inherited patient today, he slept well last night even though having trouble falling asleep, no appetite issues. Medication compliance, no side effects. Trileptal somewhat is helpful with anxiety: Pending effectiveness. Continue to titrate in the future. Could be next day. He tolerates with current dose well. Moderate on depression and anxiety. Point of care elevated, given 12 units of lispro. He also seen by the hospitalist. Abnormal left works on lipid profile. A1c was 12.1. Patient will start Glargine 10 units nightly. No safety concerns. No hallucinations, do not appear to be paranoid or psychotic. Visible and attended groups. PLAN' CV. q15 Contineu with Trileptal 150mg bid; likely titrate to 300mg TID next day on 03/16/25. Continue Venlafaxine xl 225mg STart Clonidine PRN TMS consult placed discussed HbA1C and pt aware Discussed HLD/TAG and pt aware. Seen by the hospitalist on 03/15. Start on Glargine 10 units nightly. Patient educated on: medication risk/benefits and therapeutic strategies Informed Consent: understands Reason for continued inpatient stay Substantial Risk for: med/psych decompensation Time Spent With Patient Time: Total time managing care of this patient today ____ minutes.
[2025-03-15 17:09] LABS: Glucose, Whole Blood 294 mg/dL (60-115)
[2025-03-15 17:23] VITALS: BP 120/72
[2025-03-15 20:00] VITALS: BP 111/60; PULSE 96; RESP 16; TEMP 36.8; O2SAT 99
[2025-03-15 21:07] LABS: Glucose, Whole Blood 249 mg/dL (60-115)
[2025-03-15] MEDS: Insulin Glargine,Hum.rec.anlog 100 UNIT/ML 10 ML VIAL 10 UNIT SUBCUT (21:16)
[2025-03-15] MEDS: traZODone HCL 25 MG HALFTAB PO ×2 (21:24→23:04)
[2025-03-16 00:05] VITALS: BP 139/81
[2025-03-16 08:00] VITALS: BP 122/67; PULSE 84; RESP 16; O2SAT 95
[2025-03-16 08:21] LABS: Glucose, Whole Blood 265 mg/dL (60-115)
[2025-03-16] MEDS: Venlafaxine HCl ER 75 MG CAP.ER.24H 225 MG PO (08:47)
--- NOTE | 2025-03-16 09:39 | HO.PSYCHPN ---
Subjective Subjective Date of Service: 03/16/25 Reason For Visit: Depression Interim History: met with pt; discussed with team doing better, anxiety lower;cloniding helping as PRN; tolerating increased Trileptal. Did DBT exercise which resonated with pt. Talked though chronic negative self talk Mental Status Exam Mental Status Exam Narrative: Patient is alert and oriented x3; behavior is cooperative, friendly; patient is not in distress; dressed in casual attire with adequate hygiene; mood is described as anxiety getting better and affect congruent, brighter, more calm; eye contact appropriate; Speech is normal rate, volume and prosody and not pressured; no psychomotor agitation/retardation present; thought process is organized and goal directed; Thought content is WNL, pertinent to relevant topics and without any delusional content, paranoid ideation or grandiosity; denies any SI/SIB/HI. Denies AH and there is no evidence of perceptual disturbance. Patient's insight and judgment fair. Diagnostics Vital Signs (24Hr): Vital Signs - 24 hr 03/15/25 17:23 03/15/25 20:00 03/16/25 00:05 Temperature 98.2 F Pulse Rate 96 Respiratory Rate 16 Blood Pressure 120/72 111/60 139/81 Pulse Oximetry 99 Oxygen Delivery Method Room Air 03/16/25 08:00 Temperature Pulse Rate 84 Respiratory Rate 16 Blood Pressure 122/67 Pulse Oximetry 95 Oxygen Delivery Method BMI result Body Mass Index 25.8 Labs 03/11/25 17:17 03/18/25 07:51 Labs: Laboratory Results - last 48 hr 03/14/25 03/14/25 03/14/25 12:31 17:09 21:41 POC Glucose 327 H 239 H 333 H 03/15/25 03/15/25 03/15/25 07:44 12:13 17:05 POC Glucose 206 H 414 H* 294 H 03/15/25 03/16/25 21:02 08:17 POC Glucose 249 H 265 H Medications Medications Current Medications Acetaminophen (Acetaminophen 325 Mg Tablet) 650 mg PO Q6H PRN PRN Reason: Headache/Pain, Scale 1-10 Al Hydroxide/Mg Hydroxide (Magnesium Hydrox/Alum Hydrox 30 Ml Oral.Susp) 30 ml PO Q6H PRN PRN Reason: Heartburn/Nausea Albuterol Sulfate (Albuterol Sulfate 90 Mcg 8 Gm Inhaler) 1 puff INHALE Q6H PRN PRN Reason: Shortness of Breath Amlodipine Besylate (Amlodipine Besylate 5 Mg Tablet) 5 mg PO DAILY [facility]; Protocol Last Admin: 03/16/25 08:48 Dose: 5 mg Atorvastatin Calcium (Atorvastatin Calcium 80 Mg Tablet) 80 mg PO DAILY [facility] Last Admin: 03/16/25 08:47 Dose: 80 mg Clonidine HCl (Clonidine Hcl 0.1 Mg Tablet) 0.1 mg PO Q4H PRN; Protocol PRN Reason: moderate anxiety Last Admin: 03/16/25 00:05 Dose: 0.1 mg Hydroxyzine HCl (Hydroxyzine Hcl 25 Mg Tablet) 25 mg PO Q6H PRN PRN Reason: mild anxiety Last Admin: 03/13/25 22:27 Dose: 25 mg Insulin Glargine (Insulin Glargine,Hum.Rec.Anlog 100 Unit/Ml 10 Ml Vial) 10 unit SUBCUT BEDTIME [facility] Last Admin: 03/15/25 21:16 Dose: 10 unit Insulin Human Lispro (Insulin Lispro 100 Unit/Ml 3 Ml Vial) 0 unit SUBCUT QIDACHS [facility]; Protocol Last Admin: 03/16/25 08:48 Dose: 6 unit Losartan Potassium (Losartan Potassium 50 Mg Tablet) 100 mg PO DAILY [facility]; Protocol Last Admin: 03/16/25 08:47 Dose: 100 mg Magnesium Hydroxide (Milk Of Magnesia 30 Ml Oral.Susp) 30 ml PO DAILY PRN PRN Reason: Constipation Metformin HCl (Metformin Hcl 1,000 Mg Tablet) 1,000 mg PO BIDWM [facility] Last Admin: 03/16/25 08:47 Dose: 1,000 mg Nicotine Polacrilex (Nicotine Polacrilex 2 Mg Gum) 4 mg BUCCAL Q2H PRN PRN Reason: Nicotine Cravings Oxcarbazepine (Oxcarbazepine 150 Mg Tablet) 150 mg PO BID [facility] Last Admin: 03/16/25 08:45 Dose: 150 mg Trazodone HCl (Trazodone Hcl 25 Mg Halftab) 25 mg PO BEDTIME MRX1 PRN PRN Reason: Insomnia Last Admin: 03/15/25 23:04 Dose: 25 mg Venlafaxine HCl (Venlafaxine Hcl Er 75 Mg Cap.Er.24h) 225 mg PO DAILY [facility] Last Admin: 03/16/25 08:47 Dose: 225 mg Allergies Allergies Allergy/AdvReac Type Severity Reaction Status Date / Time Penicillins Allergy Severe Anaphylaxis Verified 03/11/25 17:03 Assessment & Plan Assessment & Plan (1) MDD (major depressive disorder), recurrent severe, without psychosis: Status: Acute Code(s): F33.2 - Major depressive disorder, recurrent severe without psychotic features (2) Social anxiety disorder: Status: Acute Code(s): F40.10 - Social phobia, unspecified (3) Uncontrolled type 2 diabetes mellitus with hyperglycemia, with long-term current use of insulin: Status: Acute Code(s): E11.65 - Type 2 diabetes mellitus with hyperglycemia; 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 However, much of depressive episode triggered by some anxiety provoking event that releases flood of negative self-talk resulting in depressive episode. It seems that this anxiety remains poorly treated by Venlafaxine. -Discussed med options and reviewed risks/side-effects of both Buspar and Trileptal and pt open to both. 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 -Other options include: mirtazapine, low dose anti-psychotic, intuniv..and TMS. Will also try prn Clonidine. -Pt has unaddressed trauma and Ultimately, therapy required for most chance at reducing symptoms : Inherited patient today, he slept well last night even though having trouble falling asleep, no appetite issues. Medication compliance, no side effects. Trileptal somewhat is helpful with anxiety: Pending effectiveness. Continue to titrate in the future. Could be next day. He tolerates with current dose well. Moderate on depression and anxiety. Point of care elevated, given 12 units of lispro. He also seen by the hospitalist. Abnormal left works on lipid profile. A1c was 12.1. Patient will start Glargine 10 units nightly. No safety concerns. No hallucinations, do not appear to be paranoid or psychotic. Visible and attended groups. 03/17 doing better, anxiety lower;cloniding helping as PRN; tolerating increased Trileptal. Did DBT exercise which resonated with pt. Talked though chronic negative self talk PLAN' CV. q15 Increased Trileptal 300mg bid Continue Venlafaxine xl 225mg STart Clonidine PRN TMS consult placed discussed HbA1C and pt aware Discussed HLD/TAG and pt aware. Seen by the hospitalist on 03/15. Start on Glargine 10 units nightly. Type 2 insulin-dependent diabetes Patient reports that he has been off of his insulin as well as his Ozempic for several months due to insurance issues Has been getting lispro sliding scale. Blood sugars have been ranging to [phone] Patient was previously taking 70/ 30 insulin twice daily- not receiving here A1c noted to be 12.1 on 03/14/2025 We will start Lantus 10 units at hs- titrate up based on response Hypertension/hyperlipidemia Continue atorvastatin 80 mg daily Patient has been off of his medications, his triglycerides are elevated. Recommend repeat in 2 weeks and follow up with PCP. Continue amlodipine and losartan. Blood pressure stable Low-fat diet, encourage exercise. LFTs within normal limits Patient educated on: diagnosis, medication risk/benefits, TMS and therapeutic strategies Informed Consent: understands Reason for continued inpatient stay Substantial Risk for: stable for discharge Time Spent With Patient Time: Total time managing care of this patient today ____ minutes.
[2025-03-16 12:01] LABS: Glucose, Whole Blood 492 mg/dL (60-115)
[2025-03-16 16:28] LABS: Glucose, Whole Blood 431 mg/dL (60-115)
[2025-03-16 21:15] LABS: Glucose, Whole Blood 308 mg/dL (60-115)
[2025-03-16] MEDS: Insulin Glargine,Hum.rec.anlog 100 UNIT/ML 10 ML VIAL 10 UNIT SUBCUT (21:51)
[2025-03-16] MEDS: traZODone HCL 25 MG HALFTAB PO (21:53)
[2025-03-17 08:00] VITALS: BP 102/65; PULSE 97; RESP 16; O2SAT 97
[2025-03-17 08:17] LABS: Glucose, Whole Blood 212 mg/dL (60-115)
[2025-03-17 08:34] LABS: Anion Gap 11 (12-20); Carbon Dioxide 28 mmol/L (22-29); Chloride 104 mmol/L (96-108); Potassium 4.4 mmol/L (3.3-5.1); Sodium 139 mmol/L (135-145)
[2025-03-17 08:44] VITALS: BP 102/65
[2025-03-17] MEDS: Venlafaxine HCl ER 75 MG CAP.ER.24H 225 MG PO (08:44)
[2025-03-17 12:26] LABS: Glucose, Whole Blood 344 mg/dL (60-115)
[2025-03-17 12:54] VITALS: BP 122/78
[2025-03-17 17:05] LABS: Glucose, Whole Blood 249 mg/dL (60-115)
[2025-03-17 20:00] VITALS: BP 107/64; PULSE 89; TEMP 36.1; O2SAT 100
[2025-03-17 20:18] LABS: Glucose, Whole Blood 286 mg/dL (60-115)
[2025-03-17] MEDS: traZODone HCL 25 MG HALFTAB PO (21:54)
[2025-03-17] MEDS: Insulin Glargine,Hum.rec.anlog 100 UNIT/ML 10 ML VIAL 10 UNIT SUBCUT (22:00)
[2025-03-18 08:15] LABS: Glucose, Whole Blood 231 mg/dL (60-115)
[2025-03-18] MEDS: Venlafaxine HCl ER 75 MG CAP.ER.24H 225 MG PO (08:27)
[2025-03-18 08:30] VITALS: BP 102/62; PULSE 74; RESP 16; TEMP 36.4; O2SAT 99
[2025-03-18 08:43] LABS: Creatinine Clr Calc Pharmacy 92.7; Estimated Glomerular Filt Rate > 60
--- NOTE | 2025-03-18 09:43 | P.PNPSI_ITS ---
Documented by User: Bernadette Mejia, ADITI 03/19/25 13:08 Subjective Subjective Date of Service: 03/18/25 Reason For Visit: Depression Interim History: Pt seen and discussed with the team. Pt reports no issues of concern, no current questions. Denies increase in depressive sx. Denies physical issues. POC monitoring continues as blood sugars are high. Team reports poor dietary compliance Medication Compliance: Yes Side effects from medications: No Attending Groups: Intermittent Review of Systems Acute medical concerns: No Review of Systems Review of Systems Denies Mental Status Exam Mental Status Exam Patient Appearance: Appropriate Patient Orientation: Person, Place, Time and Situation Level of Consciousness: Alert Patient Behavior: Talkative Mood Description: Constricted Affect Description: Constricted Patient Cognition Impaired: No Ability to Follow Directions: Good Speech Pattern: Spontaneous Speech Memory Description: Intact Thought Process: Intact Thought Content: positive for Intact Judgement: Fair Diagnostics Vital Signs (24Hr): Vital Signs - 24 hr 03/17/25 12:54 03/17/25 20:00 03/18/25 08:30 Temperature 97.0 F 97.6 F Pulse Rate 89 74 Respiratory Rate 16 Blood Pressure 122/78 107/64 102/62 Pulse Oximetry 100 99 Oxygen Delivery Method Room Air Room Air BMI result Body Mass Index 25.8 Labs 03/19/25 13:41 03/19/25 13:41 Labs: Laboratory Results - last 48 hr 03/16/25 03/16/25 03/16/25 11:53 16:25 21:09 Sodium Potassium Chloride Carbon Dioxide Anion Gap Creatinine Estim Creat Clear Calc Estimated GFR POC Glucose 492 H* 431 H* 308 H 03/17/25 03/17/25 03/17/25 08:01 08:12 12:23 Sodium 139 Potassium 4.4 Chloride 104 Carbon Dioxide 28 Anion Gap 11 L Creatinine Estim Creat Clear Calc Estimated GFR POC Glucose 212 H 344 H 03/17/25 03/17/25 03/18/25 17:02 19:56 07:51 Sodium Potassium Chloride Carbon Dioxide Anion Gap Creatinine 0.95 Estim Creat Clear Calc 92.7 Estimated GFR > 60 POC Glucose 249 H 286 H 03/18/25 08:03 Sodium Potassium Chloride Carbon Dioxide Anion Gap Creatinine Estim Creat Clear Calc Estimated GFR POC Glucose 231 H Medications Medications Current Medications Acetaminophen (Acetaminophen 325 Mg Tablet) 650 mg PO Q6H PRN PRN Reason: Headache/Pain, Scale 1-10 Al Hydroxide/Mg Hydroxide (Magnesium Hydrox/Alum Hydrox 30 Ml Oral.Susp) 30 ml PO Q6H PRN PRN Reason: Heartburn/Nausea Albuterol Sulfate (Albuterol Sulfate 90 Mcg 8 Gm Inhaler) 1 puff INHALE Q6H PRN PRN Reason: Shortness of Breath Amlodipine Besylate (Amlodipine Besylate 5 Mg Tablet) 5 mg PO DAILY [facility]; Protocol Last Admin: 03/18/25 08:27 Dose: 5 mg Atorvastatin Calcium (Atorvastatin Calcium 80 Mg Tablet) 80 mg PO DAILY [facility] Last Admin: 03/18/25 08:27 Dose: 80 mg Clonidine HCl (Clonidine Hcl 0.1 Mg Tablet) 0.1 mg PO Q4H PRN; Protocol PRN Reason: moderate anxiety Last Admin: 03/18/25 08:50 Dose: 0.1 mg Hydroxyzine HCl (Hydroxyzine Hcl 25 Mg Tablet) 25 mg PO Q6H PRN PRN Reason: mild anxiety Last Admin: 03/17/25 22:08 Dose: 25 mg Insulin Glargine (Insulin Glargine,Hum.Rec.Anlog 100 Unit/Ml 10 Ml Vial) 10 unit SUBCUT BEDTIME [facility] Last Admin: 03/17/25 22:00 Dose: 10 unit Insulin Human Lispro (Insulin Lispro 100 Unit/Ml 3 Ml Vial) 0 unit SUBCUT QIDACHS [facility]; Protocol Last Admin: 03/18/25 08:29 Dose: 4 unit Losartan Potassium (Losartan Potassium 50 Mg Tablet) 100 mg PO DAILY [facility]; Protocol Last Admin: 03/18/25 08:27 Dose: 100 mg Magnesium Hydroxide (Milk Of Magnesia 30 Ml Oral.Susp) 30 ml PO DAILY PRN PRN Reason: Constipation Metformin HCl (Metformin Hcl 1,000 Mg Tablet) 1,000 mg PO BIDWM [facility] Last Admin: 03/18/25 08:27 Dose: 1,000 mg Nicotine Polacrilex (Nicotine Polacrilex 2 Mg Gum) 4 mg BUCCAL Q2H PRN PRN Reason: Nicotine Cravings Oxcarbazepine (Oxcarbazepine 300 Mg Tablet) 300 mg PO BID [facility] Last Admin: 03/18/25 08:28 Dose: 300 mg Trazodone HCl (Trazodone Hcl 25 Mg Halftab) 25 mg PO BEDTIME MRX1 PRN PRN Reason: Insomnia Last Admin: 03/17/25 21:54 Dose: 25 mg Venlafaxine HCl (Venlafaxine Hcl Er 75 Mg Cap.Er.24h) 225 mg PO DAILY [facility] Last Admin: 03/18/25 08:27 Dose: 225 mg Allergies Allergies Allergy/AdvReac Type Severity Reaction Status Date / Time Penicillins Allergy Severe Anaphylaxis Verified 03/11/25 17:03 Assessment & Plan Assessment & Plan (1) Uncontrolled type 2 diabetes mellitus with hyperglycemia, with long-term current use of insulin: Status: Acute Code(s): E11.65 - Type 2 diabetes mellitus with hyperglycemia; Z79.4 - asbestos remover (current) use of insulin (2) MDD (major depressive disorder), recurrent severe, without psychosis: Status: Acute Code(s): F33.2 - Major depressive disorder, recurrent severe without psychotic features (3) Social anxiety disorder: Status: Acute Code(s): F40.10 - Social phobia, unspecified (4) PTSD (post-traumatic stress disorder): Status: Acute Code(s): F43.10 - Post-traumatic stress disorder, unspecified Plan HPI: 44 yo male with hx of depression, severe social anxiety, PTSD ADHD, asthma, diabetes, HLD, who presents for worsening depression following being fired from job. Pt reports long hx of depressive episode, mostly triggered by anxiety provoking experience, followed by negative self talk. Pt was recently fired, unexpectedly from job after 1 week, no explanation leaving him homeless, which triggered spiraling emotions, feelings of being worthless and then that he'd be better off ; pt driving around [place], avoiding talking about his family, eventually called crisis. -no drug/alcohol abuse; no hx of manic episodes; no AVH discussed significant social anxiety: walk into situations already thinking people don't like me...anxious around people of authority; worried about getting in trouble Formulation/clinical reasoning: Depression mostly treated with Venlafaxine (recently increased). However, much of depressive episode triggered by some anxiety provoking event that releases flood of negative self-talk resulting in depressive episode. It seems that this anxiety remains poorly treated by Venlafaxine. -Discussed med options and reviewed risks/side-effects of both Buspar and Trileptal and pt open to both. 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 -Other options include: mirtazapine, low dose anti-psychotic, intuniv..and TMS. Will also try prn Clonidine. -Pt has unaddressed trauma and Ultimately, therapy required for most chance at reducing symptoms Hospital course: 03/16/25: Inherited patient today, he slept well last night even though having trouble falling asleep, no appetite issues. Medication compliance, no side effects. Trileptal somewhat is helpful with anxiety: Pending effectiveness. Continue to titrate in the future. Could be next day. He tolerates with current dose well. Moderate on depression and anxiety. Point of care elevated, given 12 units of lispro. He also seen by the hospitalist. Abnormal left works on lipid profile. A1c was 12.1. Patient will start Glargine 10 units nightly. No safety concerns. No hallucinations, do not appear to be paranoid or psychotic. Visible and attended groups. 03/17 doing better, anxiety lower;cloniding helping as PRN; tolerating increased Trileptal. Did DBT exercise which resonated with pt. Talked though chronic negative self talk 03/18: continue tx. PLAN' CV. q15 Trileptal 300mg bid; likely titrate to 300mg TID Continue Venlafaxine xl 225mg Clonidine PRN TMS consult placed discussed HbA1C and pt aware Discussed HLD/TAG and pt aware. Seen by the hospitalist on 03/15. Start on Glargine 10 units nightly. Type 2 insulin-dependent diabetes Patient reports that he has been off of his insulin as well as his Ozempic for several months due to insurance issues Has been getting lispro sliding scale. Blood sugars have been ranging to 206- 414 Patient was previously taking 70/ 30 insulin twice daily- not receiving here A1c noted to be 12.1 on 03/14/2025 We will start Lantus 10 units at hs- titrate up based on response Hypertension/hyperlipidemia Continue atorvastatin 80 mg daily Patient has been off of his medications, his triglycerides are elevated. Recommend repeat in 2 weeks and follow up with PCP. Continue amlodipine and losartan. Blood pressure stable Low-fat diet, encourage exercise. LFTs within normal limits Reason for continued inpatient stay Substantial Risk for: rapid decompensation Time Spent With Patient Time: Total time managing care of this patient today ____ minutes. Documented by User: Viktor Shafer MD 03/21/25 09:38 Subjective Subjective Reason For Visit: Depression Diagnostics Labs 03/19/25 13:41 03/19/25 13:41 Assessment & Plan Assessment & Plan (1) Uncontrolled type 2 diabetes mellitus with hyperglycemia, with long-term current use of insulin: Status: Acute Code(s): E11.65 - Type 2 diabetes mellitus with hyperglycemia; Z79.4 - asbestos remover (current) use of insulin (2) MDD (major depressive disorder), recurrent severe, without psychosis: Status: Acute Code(s): F33.2 - Major depressive disorder, recurrent severe without psychotic features (3) Social anxiety disorder: Status: Acute Code(s): F40.10 - Social phobia, unspecified (4) PTSD (post-traumatic stress disorder): Status: Acute Code(s): F43.10 - Post-traumatic stress disorder, unspecified Plan HPI: 44 yo male with hx of depression, severe social anxiety, PTSD ADHD, asthma, diabetes, HLD, who presents for worsening depression following being fired from job. Pt reports long hx of depressive episode, mostly triggered by anxiety provoking experience, followed by negative self talk. Pt was recently fired, unexpectedly from job after 1 week, no explanation leaving him homeless, which triggered spiraling emotions, feelings of being worthless and then that he'd be better off ; pt driving around [place], avoiding talking about his family, eventually called crisis. -no drug/alcohol abuse; no hx of manic episodes; no AVH discussed significant social anxiety: walk into situations already thinking people don't like me...anxious around people of authority; worried about getting in trouble Formulation/clinical reasoning: Depression mostly treated with Venlafaxine (recently increased). However, much of depressive episode triggered by some anxiety provoking event that releases flood of negative self-talk resulting in depressive episode. It seems that this anxiety remains poorly treated by Venlafaxine. -Discussed med options and reviewed risks/side-effects of both Buspar and Trileptal and pt open to both. 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 -Other options include: mirtazapine, low dose anti-psychotic, intuniv..and TMS. Will also try prn Clonidine. -Pt has unaddressed trauma and Ultimately, therapy required for most chance at reducing symptoms Hospital course: 03/16/25: Inherited patient today, he slept well last night even though having trouble falling asleep, no appetite issues. Medication compliance, no side effects. Trileptal somewhat is helpful with anxiety: Pending effectiveness. Continue to titrate in the future. Could be next day. He tolerates with current dose well. Moderate on depression and anxiety. Point of care elevated, given 12 units of lispro. He also seen by the hospitalist. Abnormal left works on lipid profile. A1c was 12.1. Patient will start Glargine 10 units nightly. No safety concerns. No hallucinations, do not appear to be paranoid or psychotic. Visible and attended groups. 03/17 doing better, anxiety lower;cloniding helping as PRN; tolerating increased Trileptal. Did DBT exercise which resonated with pt. Talked though chronic negative self talk PLAN' CV. q15 Trileptal 300mg bid; likely titrate to 300mg TID Continue Venlafaxine xl 225mg Clonidine PRN TMS consult placed discussed HbA1C and pt aware Discussed HLD/TAG and pt aware. Seen by the hospitalist on 03/15. Start on Glargine 10 units nightly. Type 2 insulin-dependent diabetes Patient reports that he has been off of his insulin as well as his Ozempic for several months due to insurance issues Has been getting lispro sliding scale. Blood sugars have been ranging to 206- 414 Patient was previously taking 70/ 30 insulin twice daily- not receiving here A1c noted to be 12.1 on 03/14/2025 We will start Lantus 10 units at hs- titrate up based on response Hypertension/hyperlipidemia Continue atorvastatin 80 mg daily Patient has been off of his medications, his triglycerides are elevated. Recommend repeat in 2 weeks and follow up with PCP. Continue amlodipine and losartan. Blood pressure stable Low-fat diet, encourage exercise. LFTs within normal limits
[2025-03-18 12:10] LABS: Glucose, Whole Blood 315 mg/dL (60-115)
[2025-03-18 17:05] LABS: Glucose, Whole Blood 410 mg/dL (60-115)
--- NOTE | 2025-03-18 17:47 | PC.NURSE ---
Pt's dinnertime POC was 410. Pt received 10 units admelog per sliding scale protocol. Hospitalist Jina Scott ordered 4 additional units, which pt received.
[2025-03-18 19:13] VITALS: BP 125/56
[2025-03-18 20:00] VITALS: BP 125/56; PULSE 99; TEMP 36.8; O2SAT 97
[2025-03-18] MEDS: traZODone HCL 25 MG HALFTAB PO ×2 (21:31→22:56)
[2025-03-18] MEDS: Insulin Glargine,Hum.rec.anlog 100 UNIT/ML 10 ML VIAL 10 UNIT SUBCUT (21:38)
[2025-03-18 23:42] LABS: Glucose, Whole Blood 390 mg/dL (60-115)
--- NOTE | 2025-03-19 | ECG_ITS ---
Test Reason : high POC's, not feeling well today Blood Pressure : */* mmHG Vent. Rate : 89 BPM Atrial Rate : 89 BPM P-R Int : 166 ms QRS Dur : 74 ms QT Int : 352 ms P-R-T Axes : 53 -2 38 degrees QTcB Int : 428 ms Normal sinus rhythm Normal ECG When compared with ECG of 13-Mar-2025 14:29, QRS axis Shifted right Criteria for Inferior infarct are no longer Present Referred By: Bernadette Mejia Electronically Signed By: Timothy Beltran
[2025-03-19 01:13] LABS: Glucose, Whole Blood 317 mg/dL (60-115)
[2025-03-19 03:16] LABS: Glucose, Whole Blood 292 mg/dL (60-115)
[2025-03-19 07:55] LABS: Glucose, Whole Blood 175 mg/dL (60-115)
[2025-03-19 08:00] VITALS: BP 105/64; PULSE 74; RESP 18; TEMP 36.3; O2SAT 98
[2025-03-19 08:10] LABS: Creatinine Clr Calc Pharmacy 96.8; Estimated Glomerular Filt Rate > 60
[2025-03-19] MEDS: Venlafaxine HCl ER 75 MG CAP.ER.24H 225 MG PO (08:34)
[2025-03-19 11:58] LABS: Glucose, Whole Blood 272 mg/dL (60-115)
--- NOTE | 2025-03-19 12:58 | P.PNPSI_ITS ---
Subjective Subjective Date of Service: 03/19/25 Reason For Visit: Depression Subjective Notes: Conditional Voluntary Interim History: Pt seen in milieu, discussed with team, asleep when attempted to meet with him in his room. POC's are high-390,317,292,175,272. Pt today tells team that he feels numb, confused, in a fog. Trileptal recently increased. Pt used 50 mg trazodone last night vs 25 mg which may be part of current sx. Discussed with dietary drink choices with no sugar to help manage POC- they only have diet jose luis jina-pt looking for juice type drinks. Will order labs/EKG to evaluate for further physical sx. Medication Compliance: Yes Side effects from medications: No Attending Groups: Intermittent Review of Systems as noted in HPI Review of Systems: High POC values Review of Systems Review of Systems as noted in HPI Mental Status Exam Mental Status Exam Patient Appearance: Appropriate Patient Orientation: Person, Place, Time and Situation Level of Consciousness: Alert Patient Behavior: Talkative and Asleep Mood Description: Constricted Affect Description: Constricted Patient Cognition Impaired: No Ability to Follow Directions: Good Speech Pattern: Spontaneous Speech Memory Description: Intact Thought Process: Intact Thought Content: positive for Intact Judgement: Fair Diagnostics Vital Signs (24Hr): Vital Signs - 24 hr 03/18/25 19:13 03/18/25 20:00 03/19/25 08:00 Temperature 98.2 F 97.4 F Pulse Rate 99 74 Respiratory Rate 18 Blood Pressure 125/56 L 125/56 L 105/64 Pulse Oximetry 97 98 Oxygen Delivery Method Room Air Room Air BMI result Body Mass Index 25.8 Labs 03/11/25 17:17 03/19/25 07:42 Labs: Laboratory Results - last 48 hr 03/17/25 03/17/25 03/18/25 17:02 19:56 07:51 Creatinine 0.95 Estim Creat Clear Calc 92.7 Estimated GFR > 60 POC Glucose 249 H 286 H 03/18/25 03/18/25 03/18/25 08:03 12:05 16:53 Creatinine Estim Creat Clear Calc Estimated GFR POC Glucose 231 H 315 H 410 H* 03/18/25 03/19/25 03/19/25 20:13 01:04 03:08 Creatinine Estim Creat Clear Calc Estimated GFR POC Glucose 390 H* 317 H 292 H 03/19/25 03/19/25 03/19/25 07:42 07:46 11:54 Creatinine 0.91 Estim Creat Clear Calc 96.8 Estimated GFR > 60 POC Glucose 175 H 272 H Medications Medications Current Medications Acetaminophen (Acetaminophen 325 Mg Tablet) 650 mg PO Q6H PRN PRN Reason: Headache/Pain, Scale 1-10 Al Hydroxide/Mg Hydroxide (Magnesium Hydrox/Alum Hydrox 30 Ml Oral.Susp) 30 ml PO Q6H PRN PRN Reason: Heartburn/Nausea Albuterol Sulfate (Albuterol Sulfate 90 Mcg 8 Gm Inhaler) 2 puff INHALE Q6H PRN PRN Reason: Shortness of Breath Amlodipine Besylate (Amlodipine Besylate 5 Mg Tablet) 5 mg PO DAILY [facility]; Protocol Last Admin: 03/19/25 08:34 Dose: 5 mg Atorvastatin Calcium (Atorvastatin Calcium 80 Mg Tablet) 80 mg PO DAILY [facility] Last Admin: 03/19/25 08:34 Dose: 80 mg Clonidine HCl (Clonidine Hcl 0.1 Mg Tablet) 0.1 mg PO Q4H PRN; Protocol PRN Reason: moderate anxiety Last Admin: 03/18/25 19:13 Dose: 0.1 mg Hydroxyzine HCl (Hydroxyzine Hcl 25 Mg Tablet) 25 mg PO Q6H PRN PRN Reason: mild anxiety Last Admin: 03/18/25 13:58 Dose: 25 mg Insulin Glargine (Insulin Glargine,Hum.Rec.Anlog 100 Unit/Ml 10 Ml Vial) 10 unit SUBCUT BEDTIME [facility] Last Admin: 03/18/25 21:38 Dose: 10 unit Insulin Human Lispro (Insulin Lispro 100 Unit/Ml 3 Ml Vial) 0 unit SUBCUT QIDACHS [facility]; Protocol Last Admin: 03/19/25 12:06 Dose: 6 unit Losartan Potassium (Losartan Potassium 50 Mg Tablet) 100 mg PO DAILY [facility]; Protocol Last Admin: 03/19/25 08:34 Dose: 100 mg Magnesium Hydroxide (Milk Of Magnesia 30 Ml Oral.Susp) 30 ml PO DAILY PRN PRN Reason: Constipation Metformin HCl (Metformin Hcl 1,000 Mg Tablet) 1,000 mg PO BIDWM [facility] Last Admin: 03/19/25 08:34 Dose: 1,000 mg Nicotine Polacrilex (Nicotine Polacrilex 2 Mg Gum) 4 mg BUCCAL Q2H PRN PRN Reason: Nicotine Cravings Oxcarbazepine (Oxcarbazepine 300 Mg Tablet) 300 mg PO BID [facility] Last Admin: 03/19/25 08:34 Dose: 300 mg Trazodone HCl (Trazodone Hcl 25 Mg Halftab) 25 mg PO BEDTIME MRX1 PRN PRN Reason: Insomnia Last Admin: 03/18/25 22:56 Dose: 25 mg Venlafaxine HCl (Venlafaxine Hcl Er 75 Mg Cap.Er.24h) 225 mg PO DAILY [facility] Last Admin: 03/19/25 08:34 Dose: 225 mg Allergies Allergies Allergy/AdvReac Type Severity Reaction Status Date / Time Penicillins Allergy Severe Anaphylaxis Verified 03/11/25 17:03 Assessment & Plan Assessment & Plan (1) Uncontrolled type 2 diabetes mellitus with hyperglycemia, with long-term current use of insulin: Status: Acute Code(s): E11.65 - Type 2 diabetes mellitus with hyperglycemia; Z79.4 - snf (current) use of insulin (2) MDD (major depressive disorder), recurrent severe, without psychosis: Status: Acute Code(s): F33.2 - Major depressive disorder, recurrent severe without psychotic features (3) Social anxiety disorder: Status: Acute Code(s): F40.10 - Social phobia, unspecified (4) PTSD (post-traumatic stress disorder): Status: Acute Code(s): F43.10 - Post-traumatic stress disorder, unspecified Plan HPI: 44 yo male with hx of depression, severe social anxiety, PTSD ADHD, asthma, diabetes, HLD, who presents for worsening depression following being fired from job. Pt reports long hx of depressive episode, mostly triggered by anxiety provoking experience, followed by negative self talk. Pt was recently fired, unexpectedly from job after 1 week, no explanation leaving him homeless, which triggered spiraling emotions, feelings of being worthless and then that he'd be better off ; pt driving around [place], avoiding talking about his family, eventually called crisis. -no drug/alcohol abuse; no hx of manic episodes; no AVH discussed significant social anxiety: walk into situations already thinking people don't like me...anxious around people of authority; worried about getting in trouble Formulation/clinical reasoning: Depression mostly treated with Venlafaxine (recently increased). However, much of depressive episode triggered by some anxiety provoking event that releases flood of negative self-talk resulting in depressive episode. It seems that this anxiety remains poorly treated by Venlafaxine. -Discussed med options and reviewed risks/side-effects of both Buspar and Trileptal and pt open to both. 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 -Other options include: mirtazapine, low dose anti-psychotic, intuniv..and TMS. Will also try prn Clonidine. -Pt has unaddressed trauma and Ultimately, therapy required for most chance at reducing symptoms Hospital course: 03/16/25: Inherited patient today, he slept well last night even though having trouble falling asleep, no appetite issues. Medication compliance, no side effects. Trileptal somewhat is helpful with anxiety: Pending effectiveness. Continue to titrate in the future. Could be next day. He tolerates with current dose well. Moderate on depression and anxiety. Point of care elevated, given 12 units of lispro. He also seen by the hospitalist. Abnormal left works on lipid profile. A1c was 12.1. Patient will start Glargine 10 units nightly. No safety concerns. No hallucinations, do not appear to be paranoid or psychotic. Visible and attended groups. 03/17 doing better, anxiety lower;cloniding helping as PRN; tolerating increased Trileptal. Did DBT exercise which resonated with pt. Talked though chronic negative self talk 03/19: Trileptal level 03/20 CBC, CMP, A1C, EKG given high POC values Reports feeling numb, confused, in a fog today. PLAN' CV. q15 Trileptal 300mg bid; likely titrate to 300mg TID Continue Venlafaxine xl 225mg Clonidine PRN TMS consult placed discussed HbA1C and pt aware Discussed HLD/TAG and pt aware. Seen by the hospitalist on 03/15. Start on Glargine 10 units nightly. Type 2 insulin-dependent diabetes Patient reports that he has been off of his insulin as well as his Ozempic for several months due to insurance issues Has been getting lispro sliding scale. Blood sugars have been ranging to 206- 414 Patient was previously taking 70/ 30 insulin twice daily- not receiving here A1c noted to be 12.1 on 03/14/2025 We will start Lantus 10 units at hs- titrate up based on response Hypertension/hyperlipidemia Continue atorvastatin 80 mg daily Patient has been off of his medications, his triglycerides are elevated. Recommend repeat in 2 weeks and follow up with PCP. Continue amlodipine and losartan. Blood pressure stable Low-fat diet, encourage exercise. LFTs within normal limits Reason for continued inpatient stay Substantial Risk for: rapid decompensation Time Spent With Patient Time: Total time managing care of this patient today ____ minutes.
[2025-03-19 13:45] LABS: MANUAL DIFF FLAG NO
[2025-03-19 13:46] LABS: Hematocrit 34.5 % (42.0-52.0); Hemoglobin 11.6 g/dl (14.0-18.0); Imm Gran Abs Auto 0.07 X10*3/uL (0.00-0.03); Imm Gran Pct Auto 0.8 % (0.0-0.4); Lymphocytes Absolute Auto 4.3 X10*3/uL (1.2-4.9); Mean Corpuscular HGB Conc 33.6 g/dl (31.0-36.0); Mean Corpuscular Hemoglobin 28.8 pg (27.0-33.0); Mean Corpuscular Volume 85.6 fL (80.0-98.0); NRBC Abs Auto 0.000 X10*3/uL (0.0-0.012); NRBC Pct Auto 0.0 /100WBC (0.0-0.2); Platelet Count 375 X10*3/uL (160-400); Red Blood Count 4.03 X10*6/uL (4.60-5.80); White Blood Count 9.0 X10*3/uL (4.8-10.8)
[2025-03-19 13:53] LABS: Hemoglobin A1C 333.6378 umol/L; Total Hemoglobin (HGBA1C) 3033.6330 umol/L
[2025-03-19 14:00] LABS: Alanine Aminotransferase 36 U/L (0-40); Albumin Level 4.1 g/dL (3.5-5.0); Alkaline Phosphatase 59 U/L (39-117); Anion Gap 12 (12-20); Aspartate Amino Transferase 25 U/L (5-37); Blood Urea Nitrogen 12 mg/dL (9-16); Calcium 8.9 mg/dL (8.4-10.2); Carbon Dioxide 29 mmol/L (22-29); Chloride 103 mmol/L (96-108); Creatinine Clr Calc Pharmacy 85.5; Estimated Glomerular Filt Rate > 60; Potassium 4.6 mmol/L (3.3-5.1); Sodium 139 mmol/L (135-145); Total Protein 6.2 g/dL (6.5-8.0)
[2025-03-19 15:40] LABS: Iron 110 mcg/dL (45-160); Percent Iron Saturation 36 % (15-50); Total Iron Binding Capacity 303 mcg/dL (228-428); Unsaturated Iron Binding 193 ug/dL
[2025-03-19 16:15] LABS: Folate 8.0 ng/mL (> or = 4.0); Vitamin B12 688 pg/mL (200-900)
[2025-03-19 17:11] LABS: Glucose, Whole Blood 281 mg/dL (60-115)
[2025-03-19 20:00] VITALS: BP 123/73; PULSE 89; RESP 16; TEMP 36.4; O2SAT 99
[2025-03-19] MEDS: Insulin Glargine,Hum.rec.anlog 100 UNIT/ML 10 ML VIAL 10 UNIT SUBCUT (22:00)
[2025-03-19] MEDS: traZODone HCL 25 MG HALFTAB PO ×2 (22:01→23:00)
[2025-03-19 23:00] VITALS: BP 131/82
[2025-03-20 01:34] LABS: Glucose, Whole Blood 310 mg/dL (60-115)
[2025-03-20 07:57] LABS: Glucose, Whole Blood 191 mg/dL (60-115)
[2025-03-20 07:58] VITALS: BP 102/58; PULSE 74; RESP 16; TEMP 36.8; O2SAT 97
[2025-03-20] MEDS: Venlafaxine HCl ER 75 MG CAP.ER.24H 225 MG PO (08:36)
[2025-03-20 12:16] LABS: Glucose, Whole Blood 320 mg/dL (60-115)
[2025-03-20 12:54] VITALS: BP 121/76
[2025-03-20 17:18] LABS: Glucose, Whole Blood 269 mg/dL (60-115)
[2025-03-20 17:32] VITALS: BP 108/58
--- NOTE | 2025-03-20 19:39 | HO.PSYCHPN ---
Subjective Subjective Date of Service: 03/20/25 Reason For Visit: Depression Subjective Notes: Conditional Voluntary Healthcare Proxy: No Guardianship: No Medical Problems Affecting Mental Status: No Interim History: Medical record and nursing notes reviewed; case discussed during rounds with team/nursing staff, and met with patient for supportive therapy/psychoeducation, as well as medication management. Patient slept for 7.5 hours, who was medication compliant. Denies side effects. Reports feeling down today as he is not able to contact his for the past couple of days. He does not know why however he was able to contact someone to let her know that he has tried to talk to her. Encourage him to try again intent afternoon as she is working during the day. He is more isolated this morning in bed. He reports Trileptal has been helpful with his mood and anxiety. He requests to get trazodone increased up to 50 mg as since it was down on he is take 2nd dose every night. Denies safety concerns. Medication Compliance: Yes Side effects from medications: No Attending Groups: Intermittent Review of Systems Acute medical concerns: No Medical Review of Systems: unchanged Review of Systems Review of Systems Denies any shortness of breath, chest pain, dizziness, lightheadedness, abdominal pain or discomfort, nausea vomiting or diarrhea Yes all other systems are reviewed and are negative Mental Status Exam Mental Status Exam Narrative: Patient is alert and oriented x3; behavior is cooperative, friendly with mild to moderate anxiety and depression; patient is not in distress; dressed in casual attire with adequate hygiene; mood is described as down and affect congruent; eye contact appropriate; Speech is normal rate, volume and prosody and not pressured; no psychomotor agitation/retardation present; thought process is organized and goal directed; Thought content is WNL, pertinent to relevant topics and without any delusional content, paranoid ideation or grandiosity; denies any SI/SIB/HI. Denies AH and there is no evidence of perceptual disturbance. Patient's insight and judgment fair. Diagnostics Vital Signs (24Hr): Vital Signs - 24 hr 03/19/25 20:00 03/19/25 23:00 03/20/25 07:58 Temperature 97.6 F 98.2 F Pulse Rate 89 74 Respiratory Rate 16 16 Blood Pressure 123/73 131/82 102/58 L Pulse Oximetry 99 97 Oxygen Delivery Method Room Air Room Air 03/20/25 12:54 03/20/25 17:32 Temperature Pulse Rate Respiratory Rate Blood Pressure 121/76 108/58 L Pulse Oximetry Oxygen Delivery Method BMI result Body Mass Index 25.8 Labs 03/19/25 13:41 03/19/25 13:41 Labs: Laboratory Results - last 48 hr 03/18/25 03/19/25 03/19/25 20:13 01:04 03:08 WBC RBC Hgb Hct MCV MCH MCHC RDW Plt Count MPV Immature Gran % (Auto) Neut % (Auto) Lymph % (Auto) [place] % (Auto) Eos % (Auto) Baso % (Auto) Lymph # (Auto) [place] # (Auto) Eos # (Auto) Baso # (Auto) Abs Immat Gran (auto) Absolute Neuts (auto) Absolute Nucleated RBC Nucleated RBC % (auto) Sodium Potassium Chloride Carbon Dioxide Anion Gap BUN Creatinine Estim Creat Clear Calc Estimated GFR POC Glucose 390 H* 317 H 292 H Random Glucose Estimat Average Glucose Hemoglobin A1c % Calcium Iron TIBC % Saturation Unsat Iron Binding Total Bilirubin AST ALT Alkaline Phosphatase Total Protein Albumin Vitamin B12 Folate 03/19/25 03/19/25 03/19/25 07:42 07:46 11:54 WBC RBC Hgb Hct MCV MCH MCHC RDW Plt Count MPV Immature Gran % (Auto) Neut % (Auto) Lymph % (Auto) [place] % (Auto) Eos % (Auto) Baso % (Auto) Lymph # (Auto) [place] # (Auto) Eos # (Auto) Baso # (Auto) Abs Immat Gran (auto) Absolute Neuts (auto) Absolute Nucleated RBC Nucleated RBC % (auto) Sodium Potassium Chloride Carbon Dioxide Anion Gap BUN Creatinine 0.91 Estim Creat Clear Calc 96.8 Estimated GFR > 60 POC Glucose 175 H 272 H Random Glucose Estimat Average Glucose Hemoglobin A1c % Calcium Iron TIBC % Saturation Unsat Iron Binding Total Bilirubin AST ALT Alkaline Phosphatase Total Protein Albumin Vitamin B12 Folate 03/19/25 03/19/25 03/19/25 13:41 15:17 17:07 WBC 9.0 RBC 4.03 L Hgb 11.6 L Hct 34.5 L MCV 85.6 MCH 28.8 MCHC 33.6 RDW 13.2 Plt Count 375 MPV 9.1 L Immature Gran % (Auto) 0.8 H Neut % (Auto) 42.9 L Lymph % (Auto) 48.0 H [place] % (Auto) 4.7 Eos % (Auto) 2.9 Baso % (Auto) 0.7 Lymph # (Auto) 4.3 [place] # (Auto) 0.4 Eos # (Auto) 0.3 Baso # (Auto) 0.1 Abs Immat Gran (auto) 0.07 H Absolute Neuts (auto) 3.9 Absolute Nucleated RBC 0.000 Nucleated RBC % (auto) 0.0 Sodium 139 Potassium 4.6 Chloride 103 Carbon Dioxide 29 Anion Gap 12 BUN 12 Creatinine 1.03 Estim Creat Clear Calc 85.5 Estimated GFR > 60 POC Glucose 281 H Random Glucose 343 H Estimat Average Glucose 303 Hemoglobin A1c % 12.2 H Calcium 8.9 Iron 110 TIBC 303 % Saturation 36 Unsat Iron Binding 193 Total Bilirubin 0.4 AST 25 ALT 36 Alkaline Phosphatase 59 Total Protein 6.2 L Albumin 4.1 Vitamin B12 688 Folate 8.0 03/19/25 03/20/25 03/20/25 21:01 07:48 12:11 WBC RBC Hgb Hct MCV MCH MCHC RDW Plt Count MPV Immature Gran % (Auto) Neut % (Auto) Lymph % (Auto) [place] % (Auto) Eos % (Auto) Baso % (Auto) Lymph # (Auto) [place] # (Auto) Eos # (Auto) Baso # (Auto) Abs Immat Gran (auto) Absolute Neuts (auto) Absolute Nucleated RBC Nucleated RBC % (auto) Sodium Potassium Chloride Carbon Dioxide Anion Gap BUN Creatinine Estim Creat Clear Calc Estimated GFR POC Glucose 310 H 191 H 320 H Random Glucose Estimat Average Glucose Hemoglobin A1c % Calcium Iron TIBC % Saturation Unsat Iron Binding Total Bilirubin AST ALT Alkaline Phosphatase Total Protein Albumin Vitamin B12 Folate 03/20/25 17:05 WBC RBC Hgb Hct MCV MCH MCHC RDW Plt Count MPV Immature Gran % (Auto) Neut % (Auto) Lymph % (Auto) [place] % (Auto) Eos % (Auto) Baso % (Auto) Lymph # (Auto) [place] # (Auto) Eos # (Auto) Baso # (Auto) Abs Immat Gran (auto) Absolute Neuts (auto) Absolute Nucleated RBC Nucleated RBC % (auto) Sodium Potassium Chloride Carbon Dioxide Anion Gap BUN Creatinine Estim Creat Clear Calc Estimated GFR POC Glucose 269 H Random Glucose Estimat Average Glucose Hemoglobin A1c % Calcium Iron TIBC % Saturation Unsat Iron Binding Total Bilirubin AST ALT Alkaline Phosphatase Total Protein Albumin Vitamin B12 Folate Medications Medications Current Medications Acetaminophen (Acetaminophen 325 Mg Tablet) 650 mg PO Q6H PRN PRN Reason: Headache/Pain, Scale 1-10 Al Hydroxide/Mg Hydroxide (Magnesium Hydrox/Alum Hydrox 30 Ml Oral.Susp) 30 ml PO Q6H PRN PRN Reason: Heartburn/Nausea Albuterol Sulfate (Albuterol Sulfate 90 Mcg 8 Gm Inhaler) 2 puff INHALE Q6H PRN PRN Reason: Shortness of Breath Amlodipine Besylate (Amlodipine Besylate 5 Mg Tablet) 5 mg PO DAILY [facility]; Protocol Last Admin: 03/20/25 08:36 Dose: 5 mg Atorvastatin Calcium (Atorvastatin Calcium 80 Mg Tablet) 80 mg PO DAILY [facility] Last Admin: 03/20/25 08:36 Dose: 80 mg Clonidine HCl (Clonidine Hcl 0.1 Mg Tablet) 0.1 mg PO Q4H PRN; Protocol PRN Reason: moderate anxiety Last Admin: 03/20/25 17:32 Dose: 0.1 mg Hydroxyzine HCl (Hydroxyzine Hcl 25 Mg Tablet) 25 mg PO Q6H PRN PRN Reason: mild anxiety Last Admin: 03/20/25 08:59 Dose: 25 mg Insulin Glargine (Insulin Glargine,Hum.Rec.Anlog 100 Unit/Ml 10 Ml Vial) 10 unit SUBCUT BEDTIME [facility] Last Admin: 03/19/25 22:00 Dose: 10 unit Insulin Human Lispro (Insulin Lispro 100 Unit/Ml 3 Ml Vial) 0 unit SUBCUT QIDACHS [facility]; Protocol Last Admin: 03/20/25 17:29 Dose: 6 unit Losartan Potassium (Losartan Potassium 50 Mg Tablet) 100 mg PO DAILY [facility]; Protocol Last Admin: 03/20/25 08:36 Dose: 100 mg Magnesium Hydroxide (Milk Of Magnesia 30 Ml Oral.Susp) 30 ml PO DAILY PRN PRN Reason: Constipation Metformin HCl (Metformin Hcl 1,000 Mg Tablet) 1,000 mg PO BIDWM [facility] Last Admin: 03/20/25 17:31 Dose: 1,000 mg Nicotine Polacrilex (Nicotine Polacrilex 2 Mg Gum) 4 mg BUCCAL Q2H PRN PRN Reason: Nicotine Cravings Oxcarbazepine (Oxcarbazepine 300 Mg Tablet) 300 mg PO DAILY [facility] Oxcarbazepine (Oxcarbazepine 300 Mg Tablet) 600 mg PO BEDTIME [facility] Trazodone HCl (Trazodone Hcl 50 Mg Tablet) 50 mg PO BEDTIME MRX1 PRN PRN Reason: Insomnia Venlafaxine HCl (Venlafaxine Hcl Er 75 Mg Cap.Er.24h) 225 mg PO DAILY [facility] Last Admin: 03/20/25 08:36 Dose: 225 mg Allergies Allergies Allergy/AdvReac Type Severity Reaction Status Date / Time Penicillins Allergy Severe Anaphylaxis Verified 03/11/25 17:03 Assessment & Plan Assessment & Plan (1) Uncontrolled type 2 diabetes mellitus with hyperglycemia, with long-term current use of insulin: Status: Acute Code(s): E11.65 - Type 2 diabetes mellitus with hyperglycemia; Z79.4 - jail (current) use of insulin (2) MDD (major depressive disorder), recurrent severe, without psychosis: Status: Acute Code(s): F33.2 - Major depressive disorder, recurrent severe without psychotic features (3) Social anxiety disorder: Status: Acute Code(s): F40.10 - Social phobia, unspecified (4) PTSD (post-traumatic stress disorder): Status: Acute Code(s): F43.10 - Post-traumatic stress disorder, unspecified Plan HPI: 44 yo male with hx of depression, severe social anxiety, PTSD ADHD, asthma, diabetes, HLD, who presents for worsening depression following being fired from job. Pt reports long hx of depressive episode, mostly triggered by anxiety provoking experience, followed by negative self talk. Pt was recently fired, unexpectedly from job after 1 week, no explanation leaving him homeless, which triggered spiraling emotions, feelings of being worthless and then that he'd be better off ; pt driving around [place], avoiding talking about his family, eventually called crisis. -no drug/alcohol abuse; no hx of manic episodes; no AVH discussed significant social anxiety: walk into situations already thinking people don't like me...anxious around people of authority; worried about getting in trouble Formulation/clinical reasoning: Depression mostly treated with Venlafaxine (recently increased). However, much of depressive episode triggered by some anxiety provoking event that releases flood of negative self-talk resulting in depressive episode. It seems that this anxiety remains poorly treated by Venlafaxine. -Discussed med options and reviewed risks/side-effects of both Buspar and Trileptal and pt open to both. 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 -Other options include: mirtazapine, low dose anti-psychotic, intuniv..and TMS. Will also try prn Clonidine. -Pt has unaddressed trauma and Ultimately, therapy required for most chance at reducing symptoms Hospital course: 03/16/25: Inherited patient today, he slept well last night even though having trouble falling asleep, no appetite issues. Medication compliance, no side effects. Trileptal somewhat is helpful with anxiety: Pending effectiveness. Continue to titrate in the future. Could be next day. He tolerates with current dose well. Moderate on depression and anxiety. Point of care elevated, given 12 units of lispro. He also seen by the hospitalist. Abnormal left works on lipid profile. A1c was 12.1. Patient will start Glargine 10 units nightly. No safety concerns. No hallucinations, do not appear to be paranoid or psychotic. Visible and attended groups. 03/17 doing better, anxiety lower;cloniding helping as PRN; tolerating increased Trileptal. Did DBT exercise which resonated with pt. Talked though chronic negative self talk 03/19: Trileptal level 03/20 CBC, CMP, A1C, EKG given high POC values Reports feeling numb, confused, in a fog today. 03/20/25: Trileptal levels pending. B12 and folate as suicide within normal limits, iron profile within normal limits. Kidneys function is within normal limit. Electrolytes within normal limits Reports feeling down today due to not able to contact his for the past couple of days. Requests to have trazodone up to 50 mg as needed as he takes the 2nd dose nightly the past couple of days. Also agreed to get Trileptal up to 600 at bedtime 300 in the morning which has been helpful to his mood and anxiety. No other safety concerns. More isolated himself in bed in the morning. PLAN' CV. q15 Trileptal 300mg bid; likely titrate to 300mg daily in the morning, and 600 at bedtime. Continue Venlafaxine xl 225mg Clonidine PRN TMS consult placed discussed HbA1C and pt aware Discussed HLD/TAG and pt aware. Seen by the hospitalist on 03/15. Start on Glargine 10 units nightly. Type 2 insulin-dependent diabetes Patient reports that he has been off of his insulin as well as his Ozempic for several months due to insurance issues Has been getting lispro sliding scale. Blood sugars have been ranging to [phone] Patient was previously taking 70/ 30 insulin twice daily- not receiving here A1c noted to be 12.1 on 03/14/2025 We will start Lantus 10 units at hs- titrate up based on response Hypertension/hyperlipidemia Continue atorvastatin 80 mg daily Patient has been off of his medications, his triglycerides are elevated. Recommend repeat in 2 weeks and follow up with PCP. Continue amlodipine and losartan. Blood pressure stable Low-fat diet, encourage exercise. LFTs within normal limits Patient educated on: medication risk/benefits and therapeutic strategies Informed Consent: understands Reason for continued inpatient stay Substantial Risk for: med/psych decompensation Time Spent With Patient Time: Total time managing care of this patient today ____ minutes.
[2025-03-20 20:00] VITALS: BP 100/57; PULSE 88; RESP 16; TEMP 36.4; O2SAT 88
[2025-03-20 20:21] LABS: Glucose, Whole Blood 288 mg/dL (60-115)
[2025-03-20] MEDS: Insulin Glargine,Hum.rec.anlog 100 UNIT/ML 10 ML VIAL 10 UNIT SUBCUT (22:23)
[2025-03-21 07:51] LABS: Glucose, Whole Blood 240 mg/dL (60-115)
[2025-03-21 08:09] VITALS: BP 100/66; PULSE 78; RESP 16; TEMP 36.4; O2SAT 97
[2025-03-21] MEDS: Venlafaxine HCl ER 75 MG CAP.ER.24H 225 MG PO (08:19)
--- NOTE | 2025-03-21 09:37 | P.PNPSI_ITS ---
Subjective Subjective Date of Service: 03/21/25 Reason For Visit: Depression Interim History: met with patient; discussed with team; reviewed chart pt reports he's feeling better and that increased Trileptal helps; he says with increased dose he has not needed any prn's so far. Pt is still anxious but now mostly about his relationship with his who has not returned phone calls. Otherwise, feels he has a plan for continued treatment. Discussed CBT which he said was helpful and can see how it will be a useful tool. Pt has been offered a job, on in [place] and one in [place]; he parents will help him until then. Mental Status Exam Mental Status Exam Narrative: Patient is alert and oriented; behavior is cooperative, friendly, calm, organized, appropriate; patient is not in distress; dressed in casual attire, unkempt but with adequate hygiene; mood is described as better and affect congruent,brighter, calm; eye contact appropriate; Speech is normal rate, volume and prosody and not pressured; no psychomotor agitation/retardation present; thought process is organized and goal directed; Thought content is WNL, future oriented; pertinent to relevant topics and without any delusional content, paranoid ideation or grandiosity; denies any SI/SIB/HI. Denies AH and there is no evidence of perceptual disturbance. Patient's insight and judgment fair. Diagnostics Vital Signs (24Hr): Vital Signs - 24 hr 03/20/25 12:54 03/20/25 17:32 03/20/25 20:00 Temperature 97.6 F Pulse Rate 88 Respiratory Rate 16 Blood Pressure 121/76 108/58 L 100/57 L Pulse Oximetry 88 L Oxygen Delivery Method Room Air 03/21/25 08:09 Temperature 97.5 F Pulse Rate 78 Respiratory Rate 16 Blood Pressure 100/66 Pulse Oximetry 97 Oxygen Delivery Method Room Air BMI result Body Mass Index 25.8 Labs 03/19/25 13:41 03/19/25 13:41 Labs: Laboratory Results - last 48 hr 03/19/25 03/19/25 03/19/25 11:54 13:41 15:17 WBC 9.0 RBC 4.03 L Hgb 11.6 L Hct 34.5 L MCV 85.6 MCH 28.8 MCHC 33.6 RDW 13.2 Plt Count 375 MPV 9.1 L Immature Gran % (Auto) 0.8 H Neut % (Auto) 42.9 L Lymph % (Auto) 48.0 H [place] % (Auto) 4.7 Eos % (Auto) 2.9 Baso % (Auto) 0.7 Lymph # (Auto) 4.3 [place] # (Auto) 0.4 Eos # (Auto) 0.3 Baso # (Auto) 0.1 Abs Immat Gran (auto) 0.07 H Absolute Neuts (auto) 3.9 Absolute Nucleated RBC 0.000 Nucleated RBC % (auto) 0.0 Sodium 139 Potassium 4.6 Chloride 103 Carbon Dioxide 29 Anion Gap 12 BUN 12 Creatinine 1.03 Estim Creat Clear Calc 85.5 Estimated GFR > 60 POC Glucose 272 H Random Glucose 343 H Estimat Average Glucose 303 Hemoglobin A1c % 12.2 H Calcium 8.9 Iron 110 TIBC 303 % Saturation 36 Unsat Iron Binding 193 Total Bilirubin 0.4 AST 25 ALT 36 Alkaline Phosphatase 59 Total Protein 6.2 L Albumin 4.1 Vitamin B12 688 Folate 8.0 03/19/25 03/19/25 03/20/25 17:07 21:01 07:48 WBC RBC Hgb Hct MCV MCH MCHC RDW Plt Count MPV Immature Gran % (Auto) Neut % (Auto) Lymph % (Auto) [place] % (Auto) Eos % (Auto) Baso % (Auto) Lymph # (Auto) [place] # (Auto) Eos # (Auto) Baso # (Auto) Abs Immat Gran (auto) Absolute Neuts (auto) Absolute Nucleated RBC Nucleated RBC % (auto) Sodium Potassium Chloride Carbon Dioxide Anion Gap BUN Creatinine Estim Creat Clear Calc Estimated GFR POC Glucose 281 H 310 H 191 H Random Glucose Estimat Average Glucose Hemoglobin A1c % Calcium Iron TIBC % Saturation Unsat Iron Binding Total Bilirubin AST ALT Alkaline Phosphatase Total Protein Albumin Vitamin B12 Folate 03/20/25 03/20/25 03/20/25 12:11 17:05 20:17 WBC RBC Hgb Hct MCV MCH MCHC RDW Plt Count MPV Immature Gran % (Auto) Neut % (Auto) Lymph % (Auto) [place] % (Auto) Eos % (Auto) Baso % (Auto) Lymph # (Auto) [place] # (Auto) Eos # (Auto) Baso # (Auto) Abs Immat Gran (auto) Absolute Neuts (auto) Absolute Nucleated RBC Nucleated RBC % (auto) Sodium Potassium Chloride Carbon Dioxide Anion Gap BUN Creatinine Estim Creat Clear Calc Estimated GFR POC Glucose 320 H 269 H 288 H Random Glucose Estimat Average Glucose Hemoglobin A1c % Calcium Iron TIBC % Saturation Unsat Iron Binding Total Bilirubin AST ALT Alkaline Phosphatase Total Protein Albumin Vitamin B12 Folate 03/21/25 07:44 WBC RBC Hgb Hct MCV MCH MCHC RDW Plt Count MPV Immature Gran % (Auto) Neut % (Auto) Lymph % (Auto) [place] % (Auto) Eos % (Auto) Baso % (Auto) Lymph # (Auto) [place] # (Auto) Eos # (Auto) Baso # (Auto) Abs Immat Gran (auto) Absolute Neuts (auto) Absolute Nucleated RBC Nucleated RBC % (auto) Sodium Potassium Chloride Carbon Dioxide Anion Gap BUN Creatinine Estim Creat Clear Calc Estimated GFR POC Glucose 240 H Random Glucose Estimat Average Glucose Hemoglobin A1c % Calcium Iron TIBC % Saturation Unsat Iron Binding Total Bilirubin AST ALT Alkaline Phosphatase Total Protein Albumin Vitamin B12 Folate Medications Medications Current Medications Acetaminophen (Acetaminophen 325 Mg Tablet) 650 mg PO Q6H PRN PRN Reason: Headache/Pain, Scale 1-10 Al Hydroxide/Mg Hydroxide (Magnesium Hydrox/Alum Hydrox 30 Ml Oral.Susp) 30 ml PO Q6H PRN PRN Reason: Heartburn/Nausea Albuterol Sulfate (Albuterol Sulfate 90 Mcg 8 Gm Inhaler) 2 puff INHALE Q6H PRN PRN Reason: Shortness of Breath Amlodipine Besylate (Amlodipine Besylate 5 Mg Tablet) 5 mg PO DAILY MELISSA; Protocol Last Admin: 03/21/25 08:19 Dose: 5 mg Atorvastatin Calcium (Atorvastatin Calcium 80 Mg Tablet) 80 mg PO DAILY MELISSA Last Admin: 03/21/25 08:19 Dose: 80 mg Clonidine HCl (Clonidine Hcl 0.1 Mg Tablet) 0.1 mg PO Q4H PRN; Protocol PRN Reason: moderate anxiety Last Admin: 03/20/25 17:32 Dose: 0.1 mg Hydroxyzine HCl (Hydroxyzine Hcl 25 Mg Tablet) 25 mg PO Q6H PRN PRN Reason: mild anxiety Last Admin: 03/20/25 22:20 Dose: 25 mg Insulin Glargine (Insulin Glargine,Hum.Rec.Anlog 100 Unit/Ml 10 Ml Vial) 10 unit SUBCUT BEDTIME MELISSA Last Admin: 03/20/25 22:23 Dose: 10 unit Insulin Human Lispro (Insulin Lispro 100 Unit/Ml 3 Ml Vial) 0 unit SUBCUT QIDACHS [facility]; Protocol Last Admin: 03/21/25 08:18 Dose: 4 unit Losartan Potassium (Losartan Potassium 50 Mg Tablet) 100 mg PO DAILY [facility]; Protocol Last Admin: 03/21/25 08:19 Dose: 100 mg Magnesium Hydroxide (Milk Of Magnesia 30 Ml Oral.Susp) 30 ml PO DAILY PRN PRN Reason: Constipation Metformin HCl (Metformin Hcl 1,000 Mg Tablet) 1,000 mg PO BIDWM [facility] Last Admin: 03/21/25 08:19 Dose: 1,000 mg Nicotine Polacrilex (Nicotine Polacrilex 2 Mg Gum) 4 mg BUCCAL Q2H PRN PRN Reason: Nicotine Cravings Oxcarbazepine (Oxcarbazepine 300 Mg Tablet) 300 mg PO DAILY [facility] Last Admin: 03/21/25 08:19 Dose: 300 mg Oxcarbazepine (Oxcarbazepine 300 Mg Tablet) 600 mg PO BEDTIME [facility] Last Admin: 03/20/25 22:21 Dose: 600 mg Trazodone HCl (Trazodone Hcl 50 Mg Tablet) 50 mg PO BEDTIME MRX1 PRN PRN Reason: Insomnia Last Admin: 03/20/25 22:20 Dose: 50 mg Venlafaxine HCl (Venlafaxine Hcl Er 75 Mg Cap.Er.24h) 225 mg PO DAILY [facility] Last Admin: 03/21/25 08:19 Dose: 225 mg Allergies Allergies Allergy/AdvReac Type Severity Reaction Status Date / Time Penicillins Allergy Severe Anaphylaxis Verified 03/11/25 17:03 Assessment & Plan Assessment & Plan (1) MDD (major depressive disorder), recurrent severe, without psychosis: Status: Acute Code(s): F33.2 - Major depressive disorder, recurrent severe without psychotic features (2) Social anxiety disorder: Status: Acute Code(s): F40.10 - Social phobia, unspecified (3) PTSD (post-traumatic stress disorder): Status: Acute Code(s): F43.10 - Post-traumatic stress disorder, unspecified (4) Uncontrolled type 2 diabetes mellitus with hyperglycemia, with long-term current use of insulin: Status: Acute Code(s): E11.65 - Type 2 diabetes mellitus with hyperglycemia; 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 Pt reports long hx of depressive episode, mostly triggered by anxiety provoking experience, followed by negative self talk. Pt was recently fired, unexpectedly from job after 1 week, no explanation leaving him homeless, which triggered spiraling emotions, feelings of being worthless and then that he'd be better off ; pt driving around [place], avoiding talking about his family, eventually called crisis. -no drug/alcohol abuse; no hx of manic episodes; no AVH discussed significant social anxiety: walk into situations already thinking people don't like me...anxious around people of authority; worried about getting in trouble Formulation/clinical reasoning: Depression mostly treated with Venlafaxine (recently increased). However, much of depressive episode triggered by some anxiety provoking event that releases flood of negative self-talk resulting in depressive episode. It seems that this anxiety remains poorly treated by Venlafaxine. -Discussed med options and reviewed risks/side-effects of both Buspar and Trileptal and pt open to both. 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 -Other options include: mirtazapine, low dose anti-psychotic, intuniv..and TMS. Will also try prn Clonidine. -Pt has unaddressed trauma and Ultimately, therapy required for most chance at reducing symptoms Hospital course: 03/16/25: Inherited patient today, he slept well last night even though having trouble falling asleep, no appetite issues. Medication compliance, no side effects. Trileptal somewhat is helpful with anxiety: Pending effectiveness. Continue to titrate in the future. Could be next day. He tolerates with current dose well. Moderate on depression and anxiety. Point of care elevated, given 12 units of lispro. He also seen by the hospitalist. Abnormal left works on lipid profile. A1c was 12.1. Patient will start Glargine 10 units nightly. No safety concerns. No hallucinations, do not appear to be paranoid or psychotic. Visible and attended groups. 03/17 doing better, anxiety lower;cloniding helping as PRN; tolerating increased Trileptal. Did DBT exercise which resonated with pt. Talked though chronic negative self talk 03/19: Trileptal level 03/20 CBC, CMP, A1C, EKG given high POC values Reports feeling numb, confused, in a fog today. 03/20/25: Trileptal levels pending. B12 and folate as suicide within normal limits, iron profile within normal limits. Kidneys function is within normal limit. Electrolytes within normal limits Reports feeling down today due to not able to contact his for the past couple of days. Requests to have trazodone up to 50 mg as needed as he takes the 2nd dose nightly the past couple of days. Also agreed to get Trileptal up to 600 at bedtime 300 in the morning which has been helpful to his mood and anxiety. No other safety concerns. More isolated himself in bed in the morning. 03/21 pt reports he's feeling better and that increased Trileptal helps; he says with increased dose he has not needed any prn's so far. Pt is still anxious but now mostly about his relationship with his who has not returned phone calls. Otherwise, feels he has a plan for continued treatment. Discussed CBT which he said was helpful and can see how it will be a useful tool. Pt has been offered a job, on in [place] and one in [place]; he parents will help him until then. depression resolved, no SI; anxiety much improved and pt is with noticeably brighter affect. He is tolerating medications well and is future oriented planning to take one of the two jobs he's been offered. Pt agrees that therapy will be an essential part of being stable in the community and plans to restart once he gets settled. Pt has remained in good behavioral and impulse control, appropriate with and staff and engaged in treatment. Pt is not in imminent risk for harm to self or others and appropriate to return to the community for treatment. PLAN' CV. q15 Trileptal 300mg bid; likely titrate to 300mg daily in the morning, and 600 at bedtime. Continue Venlafaxine xl 225mg Clonidine PRN TMS consult placed discussed HbA1C and pt aware Discussed HLD/TAG and pt aware. Seen by the hospitalist on 03/15. Start on Glargine 10 units nightly. Type 2 insulin-dependent diabetes Patient reports that he has been off of his insulin as well as his Ozempic for several months due to insurance issues Has been getting lispro sliding scale. Blood sugars have been ranging to 206- 414 Patient was previously taking 70/ 30 insulin twice daily- not receiving here A1c noted to be 12.1 on 03/14/2025 We will start Lantus 10 units at hs- titrate up based on response Hypertension/hyperlipidemia Continue atorvastatin 80 mg daily Patient has been off of his medications, his triglycerides are elevated. Recommend repeat in 2 weeks and follow up with PCP. Continue amlodipine and losartan. Blood pressure stable Low-fat diet, encourage exercise. LFTs within normal limits Patient educated on: diagnosis, medication risk/benefits, therapeutic strategies and medical condition Informed Consent: understands Reason for continued inpatient stay Substantial Risk for: stable for discharge Time Spent With Patient Time: Total time managing care of this patient today ____ minutes.
[2025-03-21 10:37] VITALS: BP 114/82
[2025-03-21 12:18] LABS: Glucose, Whole Blood 259 mg/dL (60-115)
[2025-03-21 17:14] LABS: Glucose, Whole Blood 205 mg/dL (60-115)
[2025-03-21 19:59] VITALS: BP 125/75; PULSE 101; TEMP 36.7; O2SAT 97
[2025-03-21 20:55] LABS: Glucose, Whole Blood 266 mg/dL (60-115)
[2025-03-21] MEDS: Insulin Glargine,Hum.rec.anlog 100 UNIT/ML 10 ML VIAL 10 UNIT SUBCUT (21:37)
[2025-03-22 08:25] LABS: Glucose, Whole Blood 148 mg/dL (60-115)
[2025-03-22 08:51] VITALS: BP 107/62; PULSE 73; TEMP 36.4; O2SAT 98
[2025-03-22] MEDS: Venlafaxine HCl ER 75 MG CAP.ER.24H 225 MG PO (09:22)
[2025-03-22 12:13] LABS: Glucose, Whole Blood 355 mg/dL (60-115)
--- NOTE | 2025-03-22 12:25 | P.DS_ITS ---
DS: Providers Provider Date of Service: 03/22/25 Date of admission: 03/13/25 14:09 Date of discharge: 03/22/25 Primary care physician: None Physician Attending physician on admission: Viktor Shafer Consults: 03/15/25 09:36 Consult to Hospitalist Routine Comment: Consulting Provider: [facility] Hospitalists Reason For Exam: meds for TAG; HbA1C 12 Attending physician on discharge: Viktor Shafer DS: Diagnosis Discharge Diagnosis (1) MDD (major depressive disorder), recurrent severe, without psychosis: Status: Acute (2) Social anxiety disorder: Status: Acute (3) PTSD (post-traumatic stress disorder): Status: Acute (4) Uncontrolled type 2 diabetes mellitus with hyperglycemia, with long-term current use of insulin: Status: Acute DS: Medications Discharge Medications Home Medications: Home Medications ?Medication ?Instructions ?Recorded ?Confirmed insulin NPH-regular 70-30 U-100 See Protocol subcut BI DWM 03/11/25 03/11/25 insulin 100 unit/mL subcutaneous pen (Novolin 70-30 FlexPen U-100 Insulin) potassium citrate 10 mEq (1,080 10 meq PO BIDWM 03/11/25 mg) tablet,extended release Previous Rx's ?Medication ?Instructions ?Recorded albuterol sulfate 90 mcg/actuation 2 puff inhalation Q 6H PRN 03/21/25 aerosol inhaler (Ventolin HFA) Shortness Of Breath 30 days #6.7 grams amlodipine 5 mg tablet 5 mg PO DAILY 30 days #30 ta bs 03/21/25 atorvastatin 80 mg tablet 80 mg PO DAILY 30 days #30 t abs 03/21/25 clonidine HCl 0.1 mg tablet 0.1 mg PO Q4H PRN moderate anxiety 03/21/25 30 days #90 tabs losartan 100 mg tablet 100 mg PO DAILY 30 days #30 tabs 03/21/25 metformin 1,000 mg tablet 1,000 mg PO BIDWMEAL 30 days #60 03/21/25 tabs blood sugar diagnostic (Advanced #200 ea 03/22/25 Glucose Meter Test Strips) blood-glucose calibrat control #1 ea 03/22/25 (Assure 4 Control Solution combo pack) blood-glucose meter (Advanced #1 ea 03/22/25 Glucose Meter) hydroxyzine HCl 25 mg tablet 25 mg PO Q6H PRN mild anx iety 30 25 days #60 tabs insulin glargine 100 unit/mL (3 10 unit (0.1 mL) subcu t QPM blood 03/22/25 mL) subcutaneous pen (Lantus sugar days #3 mL Solostar U-100 Insulin) insulin lispro 100 unit/mL 1 sliding scale dose subcut 03/22/25 subcutaneous pen (Humalog KwikPen USEASDIRECTD admin 4 xday before (U-100) Insulin) meals based on scale #9 mL lancets (Lancets,Ultra Thin) #200 ea 03/22/25 oxcarbazepine 300 mg tablet See Rx Instructions .Route 03/22/25 .COMPLEX #90 tabs pen needle, diabetic 32 gauge x #100 ea 03/22/25/ (Ultra Thin Pen Needle) trazodone 50 mg tablet 50 mg PO BEDTIME PRN insomni a 03/22/25 days #30 tabs venlafaxine 75 mg capsule,extended 225 mg (3 x 75 mg) PO DAILY 03/22/25 release 24 hr days #90 caps Mental Status Exam Mental Status Exam Narrative: Patient is alert and oriented; behavior is cooperative, friendly, calm, organized, appropriate; patient is not in distress; dressed in casual attire, unkempt but with adequate hygiene; mood is described as good affect overall brighter, calm; eye contact appropriate; Speech is normal rate, volume and prosody and not pressured; no psychomotor agitation/retardation present; thought process is organized and goal directed; Thought content is WNL, future oriented; pertinent to relevant topics and without any delusional content, paranoid ideation or grandiosity; denies any SI/SIB/HI. Denies AH and there is no evidence of perceptual disturbance. Patient's insight and judgment fair. Data Data Completed and Pending Completed studies during hospitalization [Text1]: 03/15/25 03/15/25 03/16/25 17:05 21:02 08:17 WBC RBC Hgb Hct MCV MCH MCHC RDW Plt Count MPV Immature Gran % (Auto) Neut % (Auto) Lymph % (Auto) [place] % (Auto) Eos % (Auto) Baso % (Auto) Lymph # (Auto) [place] # (Auto) Eos # (Auto) Baso # (Auto) Abs Immat Gran (auto) Absolute Neuts (auto) Absolute Nucleated RBC Nucleated RBC % (auto) Sodium Potassium Chloride Carbon Dioxide Anion Gap BUN Creatinine Estim Creat Clear Calc Estimated GFR POC Glucose 294 H 249 H 265 H Random Glucose Estimat Average Glucose Hemoglobin A1c % Calcium Iron TIBC % Saturation Unsat Iron Binding Total Bilirubin AST ALT Alkaline Phosphatase Total Protein Albumin Vitamin B12 Folate Oxcarbazepine 03/16/25 03/16/25 03/16/25 11:53 16:25 21:09 WBC RBC Hgb Hct MCV MCH MCHC RDW Plt Count MPV Immature Gran % (Auto) Neut % (Auto) Lymph % (Auto) [place] % (Auto) Eos % (Auto) Baso % (Auto) Lymph # (Auto) [place] # (Auto) Eos # (Auto) Baso # (Auto) Abs Immat Gran (auto) Absolute Neuts (auto) Absolute Nucleated RBC Nucleated RBC % (auto) Sodium Potassium Chloride Carbon Dioxide Anion Gap BUN Creatinine Estim Creat Clear Calc Estimated GFR POC Glucose 492 H* 431 H* 308 H Random Glucose Estimat Average Glucose Hemoglobin A1c % Calcium Iron TIBC % Saturation Unsat Iron Binding Total Bilirubin AST ALT Alkaline Phosphatase Total Protein Albumin Vitamin B12 Folate Oxcarbazepine 03/17/25 03/17/25 03/17/25 08:01 08:12 12:23 WBC RBC Hgb Hct MCV MCH MCHC RDW Plt Count MPV Immature Gran % (Auto) Neut % (Auto) Lymph % (Auto) [place] % (Auto) Eos % (Auto) Baso % (Auto) Lymph # (Auto) [place] # (Auto) Eos # (Auto) Baso # (Auto) Abs Immat Gran (auto) Absolute Neuts (auto) Absolute Nucleated RBC Nucleated RBC % (auto) Sodium 139 Potassium 4.4 Chloride 104 Carbon Dioxide 28 Anion Gap 11 L BUN Creatinine Estim Creat Clear Calc Estimated GFR POC Glucose 212 H 344 H Random Glucose Estimat Average Glucose Hemoglobin A1c % Calcium Iron TIBC % Saturation Unsat Iron Binding Total Bilirubin AST ALT Alkaline Phosphatase Total Protein Albumin Vitamin B12 Folate Oxcarbazepine 03/17/25 03/17/25 03/18/25 17:02 19:56 07:51 WBC RBC Hgb Hct MCV MCH MCHC RDW Plt Count MPV Immature Gran % (Auto) Neut % (Auto) Lymph % (Auto) [place] % (Auto) Eos % (Auto) Baso % (Auto) Lymph # (Auto) [place] # (Auto) Eos # (Auto) Baso # (Auto) Abs Immat Gran (auto) Absolute Neuts (auto) Absolute Nucleated RBC Nucleated RBC % (auto) Sodium Potassium Chloride Carbon Dioxide Anion Gap BUN Creatinine 0.95 Estim Creat Clear Calc 92.7 Estimated GFR > 60 POC Glucose 249 H 286 H Random Glucose Estimat Average Glucose Hemoglobin A1c % Calcium Iron TIBC % Saturation Unsat Iron Binding Total Bilirubin AST ALT Alkaline Phosphatase Total Protein Albumin Vitamin B12 Folate Oxcarbazepine 03/18/25 03/18/25 03/18/25 08:03 12:05 16:53 WBC RBC Hgb Hct MCV MCH MCHC RDW Plt Count MPV Immature Gran % (Auto) Neut % (Auto) Lymph % (Auto) [place] % (Auto) Eos % (Auto) Baso % (Auto) Lymph # (Auto) [place] # (Auto) Eos # (Auto) Baso # (Auto) Abs Immat Gran (auto) Absolute Neuts (auto) Absolute Nucleated RBC Nucleated RBC % (auto) Sodium Potassium Chloride Carbon Dioxide Anion Gap BUN Creatinine Estim Creat Clear Calc Estimated GFR POC Glucose 231 H 315 H 410 H* Random Glucose Estimat Average Glucose Hemoglobin A1c % Calcium Iron TIBC % Saturation Unsat Iron Binding Total Bilirubin AST ALT Alkaline Phosphatase Total Protein Albumin Vitamin B12 Folate Oxcarbazepine 03/18/25 03/19/25 03/19/25 20:13 01:04 03:08 WBC RBC Hgb Hct MCV MCH MCHC RDW Plt Count MPV Immature Gran % (Auto) Neut % (Auto) Lymph % (Auto) [place] % (Auto) Eos % (Auto) Baso % (Auto) Lymph # (Auto) [place] # (Auto) Eos # (Auto) Baso # (Auto) Abs Immat Gran (auto) Absolute Neuts (auto) Absolute Nucleated RBC Nucleated RBC % (auto) Sodium Potassium Chloride Carbon Dioxide Anion Gap BUN Creatinine Estim Creat Clear Calc Estimated GFR POC Glucose 390 H* 317 H 292 H Random Glucose Estimat Average Glucose Hemoglobin A1c % Calcium Iron TIBC % Saturation Unsat Iron Binding Total Bilirubin AST ALT Alkaline Phosphatase Total Protein Albumin Vitamin B12 Folate Oxcarbazepine 03/19/25 03/19/25 03/19/25 07:42 07:46 11:54 WBC RBC Hgb Hct MCV MCH MCHC RDW Plt Count MPV Immature Gran % (Auto) Neut % (Auto) Lymph % (Auto) [place] % (Auto) Eos % (Auto) Baso % (Auto) Lymph # (Auto) [place] # (Auto) Eos # (Auto) Baso # (Auto) Abs Immat Gran (auto) Absolute Neuts (auto) Absolute Nucleated RBC Nucleated RBC % (auto) Sodium Potassium Chloride Carbon Dioxide Anion Gap BUN Creatinine 0.91 Estim Creat Clear Calc 96.8 Estimated GFR > 60 POC Glucose 175 H 272 H Random Glucose Estimat Average Glucose Hemoglobin A1c % Calcium Iron TIBC % Saturation Unsat Iron Binding Total Bilirubin AST ALT Alkaline Phosphatase Total Protein Albumin Vitamin B12 Folate Oxcarbazepine 03/19/25 03/19/25 03/19/25 13:41 15:17 17:07 WBC 9.0 RBC 4.03 L Hgb 11.6 L Hct 34.5 L MCV 85.6 MCH 28.8 MCHC 33.6 RDW 13.2 Plt Count 375 MPV 9.1 L Immature Gran % (Auto) 0.8 H Neut % (Auto) 42.9 L Lymph % (Auto) 48.0 H [place] % (Auto) 4.7 Eos % (Auto) 2.9 Baso % (Auto) 0.7 Lymph # (Auto) 4.3 [place] # (Auto) 0.4 Eos # (Auto) 0.3 Baso # (Auto) 0.1 Abs Immat Gran (auto) 0.07 H Absolute Neuts (auto) 3.9 Absolute Nucleated RBC 0.000 Nucleated RBC % (auto) 0.0 Sodium 139 Potassium 4.6 Chloride 103 Carbon Dioxide 29 Anion Gap 12 BUN 12 Creatinine 1.03 Estim Creat Clear Calc 85.5 Estimated GFR > 60 POC Glucose 281 H Random Glucose 343 H Estimat Average Glucose 303 Hemoglobin A1c % 12.2 H Calcium 8.9 Iron 110 TIBC 303 % Saturation 36 Unsat Iron Binding 193 Total Bilirubin 0.4 AST 25 ALT 36 Alkaline Phosphatase 59 Total Protein 6.2 L Albumin 4.1 Vitamin B12 688 Folate 8.0 Oxcarbazepine 03/19/25 03/20/25 03/20/25 21:01 07:48 12:11 WBC RBC Hgb Hct MCV MCH MCHC RDW Plt Count MPV Immature Gran % (Auto) Neut % (Auto) Lymph % (Auto) [place] % (Auto) Eos % (Auto) Baso % (Auto) Lymph # (Auto) [place] # (Auto) Eos # (Auto) Baso # (Auto) Abs Immat Gran (auto) Absolute Neuts (auto) Absolute Nucleated RBC Nucleated RBC % (auto) Sodium Potassium Chloride Carbon Dioxide Anion Gap BUN Creatinine Estim Creat Clear Calc Estimated GFR POC Glucose 310 H 191 H 320 H Random Glucose Estimat Average Glucose Hemoglobin A1c % Calcium Iron TIBC % Saturation Unsat Iron Binding Total Bilirubin AST ALT Alkaline Phosphatase Total Protein Albumin Vitamin B12 Folate Oxcarbazepine 03/20/25 03/20/25 03/21/25 17:05 20:17 07:44 WBC RBC Hgb Hct MCV MCH MCHC RDW Plt Count MPV Immature Gran % (Auto) Neut % (Auto) Lymph % (Auto) [place] % (Auto) Eos % (Auto) Baso % (Auto) Lymph # (Auto) [place] # (Auto) Eos # (Auto) Baso # (Auto) Abs Immat Gran (auto) Absolute Neuts (auto) Absolute Nucleated RBC Nucleated RBC % (auto) Sodium Potassium Chloride Carbon Dioxide Anion Gap BUN Creatinine Estim Creat Clear Calc Estimated GFR POC Glucose 269 H 288 H 240 H Random Glucose Estimat Average Glucose Hemoglobin A1c % Calcium Iron TIBC % Saturation Unsat Iron Binding Total Bilirubin AST ALT Alkaline Phosphatase Total Protein Albumin Vitamin B12 Folate Oxcarbazepine 03/21/25 03/21/25 03/21/25 07:49 12:09 17:06 WBC RBC Hgb Hct MCV MCH MCHC RDW Plt Count MPV Immature Gran % (Auto) Neut % (Auto) Lymph % (Auto) [place] % (Auto) Eos % (Auto) Baso % (Auto) Lymph # (Auto) [place] # (Auto) Eos # (Auto) Baso # (Auto) Abs Immat Gran (auto) Absolute Neuts (auto) Absolute Nucleated RBC Nucleated RBC % (auto) Sodium Potassium Chloride Carbon Dioxide Anion Gap BUN Creatinine Estim Creat Clear Calc Estimated GFR POC Glucose 259 H 205 H Random Glucose Estimat Average Glucose Hemoglobin A1c % Calcium Iron TIBC % Saturation Unsat Iron Binding Total Bilirubin AST ALT Alkaline Phosphatase Total Protein Albumin Vitamin B12 Folate Oxcarbazepine Pending 03/21/25 03/22/25 03/22/25 20:40 08:18 12:05 WBC RBC Hgb Hct MCV MCH MCHC RDW Plt Count MPV Immature Gran % (Auto) Neut % (Auto) Lymph % (Auto) [place] % (Auto) Eos % (Auto) Baso % (Auto) Lymph # (Auto) [place] # (Auto) Eos # (Auto) Baso # (Auto) Abs Immat Gran (auto) Absolute Neuts (auto) Absolute Nucleated RBC Nucleated RBC % (auto) Sodium Potassium Chloride Carbon Dioxide Anion Gap BUN Creatinine Estim Creat Clear Calc Estimated GFR POC Glucose 266 H 148 H 355 H* Random Glucose Estimat Average Glucose Hemoglobin A1c % Calcium Iron TIBC % Saturation Unsat Iron Binding Total Bilirubin AST ALT Alkaline Phosphatase Total Protein Albumin Vitamin B12 Folate Oxcarbazepine DS: Summary Hospital Course Hospital Course: HPI: 44 yo male with hx of depression, severe social anxiety, PTSD ADHD, asthma, diabetes, HLD, who presents for worsening depression following being fired from job. Pt reports long hx of depressive episode, mostly triggered by anxiety provoking experience, followed by negative self talk. Pt was recently fired, unexpectedly from job after 1 week, no explanation leaving him homeless, which triggered spiraling emotions, feelings of being worthless and then that he'd be better off ; pt driving around [place], avoiding talking about his family, even tually called crisis. -no drug/alcohol abuse; no hx of manic episodes; no AVH discussed significant social anxiety: walk into situations already thinking people don't like me...anxious around people of authority; worried about getting in trouble Formulation/clinical reasoning: Depression mostly treated with Venlafaxine (recently increased). However, much of depressive episode triggered by some anxiety provoking event that releases flood of negative self-talk resulting in depressive episode. It seems that this anxiety remains poorly treated by Venlafaxine. -Discussed med options and reviewed risks/side-effects of both Buspar and Trileptal and pt open to both. 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 -Other options include: mirtazapine, low dose anti-psychotic, intuniv..and TMS. Will also try prn Clonidine. -Pt has unaddressed trauma and Ultimately, therapy required for most chance at reducing symptoms Patient had been off medications for 2 weeks including insulin; diabetes medication regimen restarted with addition of Lantus at bedtime (used to be on Ozempic but not covered by insurance) patient restarted on anticholesterol and blood pressure medications as well; potassium stable throughout admission but patient takes Potassium Citrate to prevent kidney stones Hospital course: Depressed and anxious on admission however SI had fully resolved. Reviewed medication risks/side effects and patient agreed to continue on home medication of venlafaxine but after reviewing risks/side effects of clonidine, Trileptal, agreed to start medications to help with anxiety; patient found this medication regimen effective and was well tolerated and electrolytes remained WNL. Patient felt that medications were helping in his anxiety was lower. Patient engaged in treatment, did DBT exercise which he also found helpful. Patient remained with improved mood and depression abated; anxiety also significantly lower. Patient continued to have bouts of anxiety but found that PRNs were helpful and with titrated Trileptal, found he needed PRNs much less. Sometimes patient said he felt a little foggy in the morning, likely due to trazodone however he said he was sleeping well and that this fogginess cleared up pretty quickly. Pt did have trouble getting a hold of his which was anxiety provoking however he shared that he had been having chronic relational struggles; patient accepted this and was resolved deal with this post discharge. Pt was future oriented and was deciding between 2 different job offers, one in [place] and one in [place]; patient plan to go to respite for few days until he could get to [place] and then would stay with his parents until the job started in March. Patient had returned to baseline. He remained engaged in treatment, attending groups, forthcoming in 1 on 1 sessions and social with peers. Depression resolved,, no SI and remain anxiety much improved; patient was with a noticeably brighter affect. Patient will very likely continue to struggle with anxiety and depression, however this is a chronic struggle spanning decades, of which he is well aware and will not resolve any further with longer inpatient stay; rather patient agrees that therapy will be an essential part of being stable in the community and plans to restart once he gets settled. Pt has remained in good behavioral and impulse control, appropriate with and staff and engaged in treatment. Pt is not in imminent risk for harm to self or others and appropriate to return to the community for treatment. Medications: Started on Trileptal Started on clonidine p.r.n. Started on trazodone p.r.n. Started on hydroxyzine p.r.n. Continued Venlafaxine xl 225mg Clonidine PRN Time spent discussing smoking cessation with patient: 3 to 10 minutes Status at Discharge Functional status at discharge: independent ambulation Overall status at discharge: patient is back to baseline Time Spent with Patient Time attestation: Total time managing care of this patient today _50___ minutes. Time spent: Greater than 30 minutes Specific discharge activities: Met with patient; discussed with team, medications prescriptions, charting Discharge Plan Discharge Anticipated Discharge Date/Time: 03/22/25 15:36 Patient Disposition: Nursing Home Discharge Diagnosis: MDD, recurrent, severe in full remission Referrals: Physician,None [Primary Care Provider, Medical] - 1 Week Discharge Medications: New clonidine HCl 0.1 mg Tablet 0.1 mg PO Q4H PRN (Reason: moderate anxiety) 30 Days Qty: 90 0RF Protocol: Hold for SBP< HOLD for SBP < : 90 insulin glargine [Lantus Solostar U-100 Insulin] 100 unit/mL (3 mL) insulin pen 10 unit subcut QPM 30 Days Qty: 3 0RF Rx Instructions: quantity: 1 (DME) Assure 4 Control Solution Combo Pack See Rx Instructions .Route Qty: 1 0RF Rx Instructions: As directed: use to calibrate glucometer monthly insulin lispro [Humalog KwikPen Insulin] 100 unit/mL insulin pen 1 sliding scale dose subcut USEASDIRECTD Qty: 9 0RF Rx Instructions: Quantity: 3 pens Sliding scale Less than or equal to 110 ---- Give (units): 0 111 to 150 Give (units): 0 151 to 200 Give (units): 2 201 to 250 Give (units): 4 251 to 300 Give (units): 6 301 to 350 Give (units): 8 Greater than 350 Give (units): 10 Call your PCP if Blood Glucose is at or over:350 oxcarbazepine 300 mg Tablet See Rx Instructions .ROUTE .COMPLEX Qty: 90 0RF Rx Instructions: take 1 tab in the morning and take 2 tabs at bedtime hydroxyzine HCl 25 mg Tablet 25 mg PO Q6H PRN (Reason: mild anxiety) 30 Days Qty: 60 0RF venlafaxine 75 mg capsule,extended release 24hr 225 mg PO DAILY 30 Days Qty: 90 0RF trazodone 50 mg tablet 50 mg PO BEDTIME PRN (Reason: insomnia) 30 Days Qty: 30 0RF (DME) blood-glucose meter [Advanced Glucose Meter] Misc See Rx Instructions .Route Qty: 1 0RF Rx Instructions: As directed: check blood sugar 4xday before meals (DME) Advanced Gluc Meter Test Strip Strip See Rx Instructions .Route Qty: 200 0RF Rx Instructions: As directed: check blood sugar 4xday before meals (DME) lancets [Lancets,Ultra Thin] Misc See Rx Instructions .Route Qty: 200 0RF Rx Instructions: As directed: used 4xday before meals to check blood sugar (DME) pen needle, diabetic [Ultra Thin Pen Needle] 32 gauge x 5/32 needle See Rx Instructions .Route Qty: 200 0RF Rx Instructions: As directed: administer insulin as needed per protocol Continued atorvastatin 80 mg Tablet 80 mg PO DAILY 30 Days Qty: 30 0RF amlodipine 5 mg Tablet 5 mg PO DAILY 30 Days Qty: 30 0RF metformin 1,000 mg Tablet 1,000 mg PO BIDWMEAL 30 Days Qty: 60 0RF losartan 100 mg Tablet 100 mg PO DAILY 30 Days Qty: 30 0RF potassium citrate 10 mEq (1,080 mg) Tablet Extended Release 10 meq PO BIDWM 30 Days Qty: 60 0RF Changed albuterol sulfate [Ventolin HFA] 90 mcg/actuation Hfa Aerosol Inhaler 2 puff INHALATION Q6H PRN (Reason: Shortness Of Breath) 30 Days Qty: 6.7 0RF Discontinued Novolin 70-30 FlexPen U-100 100 unit/mL (70-30) Insulin Pen See Protocol SUBCUT BIDWM Protocol: Insulin Correction Scale Less than or equal to 110 ---- Give (units): 0 111 to 150 Give (units): 0 151 to 200 Give (units): 2 201 to 250 Give (units): 4 251 to 300 Give (units): 6 301 to 350 Give (units): 8 Greater than 350 Give (units): 10 Call MD if Blood Glucose > : 350 Rx Instructions: taken with breakfast and dinner venlafaxine [Effexor XR] 75 mg Capsule,Extended Release 24hr 225 mg PO DAILY Discharge Orders: Discharge Order (Routine); Ordered 03/22/25 Ordered By: Viktor Shafer Diet: Diabetic diet Activity on Discharge: As tolerated Stand Alone Forms: Patient Portal Discharge page, Community Support Print Language: Zambian Care Plan Goals: Maintain mood and safe behaviors Take medications as prescribed Practice coping skills Continue with outpatient providers and reach out to them as needed Health Concerns: Mood stability and behaviors Diabetes Elevated Cholesterol Hypertension Asthma Plan of Treatment: Follow up with your PCP, psychiatric provider and other outpatient providers regarding above concerns Take medications as prescribed Assessment: Risk assessment at time of discharge:? Patient was interviewed prior to disc harge and found to be fully oriented and without any SI or HI. Patient has improved insight and judgment and wants to continue treatment. Patient is not in imminent risk of harm to self or others and has a safety plan that includes presenting to the closest ER or calling 911 if feeling unsafe.? Patient has been observed closely by nursing and unit staff throughout admission; patient has not engaged in any behaviors that suggest dangerousness to self or others and has demonstrated appropriate behaviors and impulse control
== END 2025-03-22 16:21 | disposition home or self-care (01) | DRG 885 ==
LOC: HO.ED 03-13 14:28 → HO.PM5 03-13 14:37
PROVIDERS: Emergency Medicine; Admitting Provider Clinical Nurse Specialist Psychiatric/Mental Health, Adult; Emergency Provider Emergency Medicine; Visit Provider Psychiatry & Neurology Psychiatry
DX: F33.2 Major depressive disorder, recurrent severe without psychotic features (principal); Z59.02 Unsheltered homelessness; E11.65 Type 2 diabetes mellitus with hyperglycemia; F40.10 Social phobia, unspecified; E78.5 Hyperlipidemia, unspecified; I10 Essential (primary) hypertension; F43.10 Post-traumatic stress disorder, unspecified; Z91.51 Personal history of suicidal behavior; Z79.4 Long term (current) use of insulin; Z79.84 Long term (current) use of oral hypoglycemic drugs; Z79.899 Other long term (current) drug therapy
CPT/HCPCS: 36415; 80048; 80051; 80053; 80061; 80307; 80339; 81001; 82565; 82607; 82746; 82947; 83036; 83540; 83735; 84439; 84443; 85025; 93005; 99285; S9485

== ENCOUNTER 2025-03-13 14:09 | Outpatient (BNV) | payer OTHER, SELFPAY | END 2025-03-13 14:29 | PROVIDERS: Admitting Provider Clinical Nurse Specialist Psychiatric/Mental Health, Adult; Emergency Provider Emergency Medicine; Visit Provider Internal Medicine | DX: R00.0 Tachycardia, unspecified (principal) | CPT/HCPCS: 93010 ==

== ENCOUNTER 2025-03-13 14:09 | Outpatient (BNV) | payer OTHER, SELFPAY | END 2025-03-19 15:10 | PROVIDERS: Admitting Provider Clinical Nurse Specialist Psychiatric/Mental Health, Adult; Emergency Provider Emergency Medicine; Visit Provider Internal Medicine Cardiovascular Disease | DX: Z13.6 Encounter for screening for cardiovascular disorders (principal) | CPT/HCPCS: 93010 ==

== ENCOUNTER → 2025-03-13 14:09 | Outpatient (BNV) | payer OTHER, SELFPAY | PROVIDERS: Admitting Provider Clinical Nurse Specialist Psychiatric/Mental Health, Adult; Emergency Provider Emergency Medicine; Visit Provider Nurse Practitioner Family | DX: E11.65 Type 2 diabetes mellitus with hyperglycemia (principal); Z79.4 Long term (current) use of insulin | CPT/HCPCS: 99221 ==

== ENCOUNTER → 2025-03-13 14:09 | Outpatient (BNV) | payer OTHER, SELFPAY | PROVIDERS: Admitting Provider Clinical Nurse Specialist Psychiatric/Mental Health, Adult; Emergency Provider Emergency Medicine; Visit Provider Nurse Practitioner Psychiatric/Mental Health | DX: F33.2 Major depressive disorder, recurrent severe without psychotic features (principal); F40.10 Social phobia, unspecified; F43.11 Post-traumatic stress disorder, acute; E11.65 Type 2 diabetes mellitus with hyperglycemia; Z79.4 Long term (current) use of insulin | CPT/HCPCS: 90792; 99231; 99232; 99239 ==